=== PATIENT | male | born 1950 | race Caucasian/White ===

== ENCOUNTER → 2016-03-07 | Outpatient (CLI) | payer OTHER ==
[~2016-03-07] MED LIST: AGRYLIN0.5 MG PO; ALBUTEROL0.09 MG/A2 IH; AMBIEN5 MG PO; ASACOL400 MG PO; ASPI-COR81 M1 PO; ASPIRIN325 M2 PO; ATIVAN1 MG PO; AUGMENTIN 875 M1 TAB PO; CALCIUM1 CAP PO; CALCIUM1 TAB PO; CIPRO500 MG PO; CIPRODEX 0.3%-7.5 ML OT; CLARITIN10 MG PO; COMBIVENT1 ARO IH; DOXYCYCLINE MO100 MG PO; EFFEXOR XR37.5 M1 PO; EFFEXOR37.5 MG PO; FLEXERIL5 MG PO; FLOMAX0.4 MG PO; FOLIC ACID1 MG PO; HYDREA500 M1 PO; HYDREA500 MG PO; IMODIUM2 MG PO; IRON; LAMICTAL CD5 MG PO; LOMOTIL 0.025 M1 TAB PO; LOPERAMIDE2 MG; LORTAB 7.5/3251 TAB PO; MS CONTIN30 MG PO; MUCINEX600 MG PO; MULTIPLE VITAMI1 TAB PO; NASONEX0.05 MG/AC NAS; NATURE'S BLEND F1 MG PO; POTASSIUM20 MEQ PO; PREVACID30 M1 PO; PRILOSEC20 MG PO; ROBAXIN750 MG PO; SINGULAIR10 MG PO; STOMACH; ULTRAM50 MG PO; VIBRAMYCIN100 MG PO; VICO75300 PO; VICODIN 5/500 505 MG PO; XANAX0.5 MG PO; ZITHROMAX Z PA250 MG PO; ZOFRAN4 MG PO; ZOLPIDEM10 MG PO; ZYRTEC10 MG PO; [UNRECOGNIZED DRUG - REMARK]
[2016-03-07 18:59] LABS: HEMATOCRIT 35.8 % (42.0-52.0); HEMOGLOBIN 12.5 g/dl (14.0-18.0); MEAN CELL VOLUME 110.5 fl (80.0-94.0); MEAN CORPUSCULAR HGB 38.6 pg (27.0-31.0); MEAN CORPUSCULAR HGB CONC 34.9 g/dl (33.0-37.0); MEAN PLATELET VOLUME 8.7 fl (9.6-12.3); PLATELET COUNT AUTOMATED 274 10*3/uL (130-400); RED BLOOD COUNT 3.24 10*6/uL (4.50-5.90); RED CELL DISTRI WIDTH 14.5 % (0-14.5); WHITE BLOOD COUNT 8.9 10*3/uL (4.8-10.8)
[2016-03-07 19:21] LABS: ALBUMIN 3.8 gm/dl (3.1-4.5); ALKALINE PHOSPHATASE 45 U/L (45-117); BILIRUBIN, TOTAL 0.5 mg/dl (0.2-1.0); BUN 19 mg/dl (7-24); CARBON DIOXIDE 26 mmol/L (21-32); CHLORIDE 107 mmol/L (98-107); CHOLESTEROL 187 mg/dL (<200); EST GLOM FILT AFRICAN AMERICAN > 60 ml/min; FREE T4 0.93 ng/dl (0.76-1.46); GLUCOSE 111 mg/dL (65-99); HDL CHOLESTEROL 33 mg/dl (40-60); SGOT/AST 24 IU/L (3-35); SGPT/ALT 30 U/L (12-78); SODIUM 142 mmol/L (136-145); TOTAL PROTEIN 7.1 gm/dL (6.4-8.2); TRIGLYCERIDES 542 mg/dl (<150)
[2016-03-07 19:22] LABS: LYMPHOCYTE # 1.3 10*3/uL (1.3-4.4); MONOCYTE # 0.7 10*3/uL (0.1-1.0); NEUTROPHIL # 6.9 10*3/uL (2.3-7.9); NEUTROPHILS 77 % (47-73); TOTAL CELLS COUNTED 100 #CELLS
[2016-03-07 19:23] LABS: PLATELET SUFFICIENCY NORMAL (NORMAL); POLYCHROMASIA SLIGHT; TEAR DROP CELLS FEW
[2016-03-07 19:30] LABS: FOLIC ACID 17.59 ng/mL (>5.38); VITAMIN D, 25-HYDROXY 25.5 ng/mL (30-100)
== END | disposition home or self-care (01) ==
LOC: LAB 18:17
PROVIDERS: Internal Medicine Hematology & Oncology
DX: Z12.5 Encounter for screening for malignant neoplasm of prostate (principal); Z13.21 Encounter for screening for nutritional disorder; Z13.1 Encounter for screening for diabetes mellitus; Z13.220 Encounter for screening for lipoid disorders; C18.9 Malignant neoplasm of colon, unspecified; E55.9 Vitamin D deficiency, unspecified; K21.0 Gastro-esophageal reflux disease with esophagitis; K51.90 Ulcerative colitis, unspecified, without complications; R53.81 Other malaise

== ENCOUNTER 2016-05-21 19:39 | Emergency (ER) | payer OTHER ==
[~2016-05-21] VITALS: Ht 170.1 cm; Wt 83.9 kg
[2016-05-21 19:46] VITALS: BP 150/74
[2016-05-21] MEDS ORDERED: FLONASE ALLERG9.9 ML NS (21:24)
[2016-05-21] MEDS ORDERED: AUGMENTIN 875875 MG PO (21:24)
== END 2016-05-21 21:30 | disposition home or self-care (01) ==
LOC: ED 19:39
DX: J01.90 Acute sinusitis, unspecified (principal); H93.8X1 Other specified disorders of right ear; F17.200 Nicotine dependence, unspecified, uncomplicated; Z88.8 Allergy status to other drugs, medicaments and biological substances; Z79.899 Other long term (current) drug therapy

== ENCOUNTER → 2016-06-05 | Outpatient (CLI) | payer OTHER ==
[~2016-06-05] MED LIST changes: +AUGMENTIN 875875 MG PO; +FLONASE ALLERG9.9 ML NS
[2016-06-05 12:14] LABS: BASO % 0.5 % (0.0-1.0); EOS # 0.1 10*3/uL (0.0-0.4); EOS % 2.5 % (1.0-4.0); HEMATOCRIT 38.8 % (42.0-52.0); HEMOGLOBIN 13.5 g/dl (14.0-18.0); LYMPH # 1.2 10*3/uL (1.3-4.4); LYMPH % 22.3 % (27.0-41.0); MEAN CELL VOLUME 107.8 fl (80.0-94.0); MEAN CORPUSCULAR HGB 37.5 pg (27.0-31.0); MEAN CORPUSCULAR HGB CONC 34.8 g/dl (33.0-37.0); MEAN PLATELET VOLUME 8.9 fl (9.6-12.3); MONO # 0.7 10*3/uL (0.1-1.0); MONO % 12.6 % (3.0-9.0); NEUT # 3.4 10*3/uL (2.3-7.9); NEUT % 61.9 % (47.0-73.0); PLATELET COUNT AUTOMATED 361 10*3/uL (130-400); RED CELL DISTRI WIDTH 14.7 % (0-14.5); WHITE BLOOD COUNT 5.6 10*3/uL (4.8-10.8)
== END | disposition home or self-care (01) ==
LOC: LAB 10:55
PROVIDERS: Internal Medicine Hematology & Oncology
DX: D47.1 Chronic myeloproliferative disease (principal)

== ENCOUNTER 2016-08-22 11:29 | Emergency (ER) | payer OTHER ==
[~2016-08-22] VITALS: Ht 170.1 cm; Wt 83.9 kg
[2016-08-22 11:33] VITALS: BP 143/79
[2016-08-22 12:07] LABS: HEMATOCRIT 39.1 % (42.0-52.0); MEAN CELL VOLUME 110.8 fl (80.0-94.0); MEAN CORPUSCULAR HGB 39.7 pg (27.0-31.0); MEAN CORPUSCULAR HGB CONC 35.8 g/dl (33.0-37.0); MEAN PLATELET VOLUME 8.6 fl (9.6-12.3); PLATELET COUNT AUTOMATED 345 10*3/uL (130-400); RED BLOOD COUNT 3.53 10*6/uL (4.50-5.90); RED CELL DISTRI WIDTH 15.4 % (0-14.5); WHITE BLOOD COUNT 5.5 10*3/uL (4.8-10.8)
[2016-08-22 12:23] LABS: ALBUMIN 3.7 gm/dl (3.1-4.5); ALKALINE PHOSPHATASE 59 U/L (45-117); BILIRUBIN, TOTAL 0.4 mg/dl (0.2-1.0); BUN 24 mg/dl (7-24); CARBON DIOXIDE 20 mmol/L (21-32); CHLORIDE 109 mmol/L (98-107); EST GLOM FILT AFRICAN AMERICAN > 60 ml/min; GLUCOSE 118 mg/dL (65-99); POTASSIUM 4.1 mmol/L (3.5-5.1); SGOT/AST 18 IU/L (3-35); SGPT/ALT 31 U/L (12-78); SODIUM 140 mmol/L (136-145); TOTAL PROTEIN 7.9 gm/dL (6.4-8.2)
[2016-08-22 12:26] LABS: TROPONIN I < 0.015 ng/ml (<0.045)
[2016-08-22 12:29] LABS: LYMPHOCYTE # 1.2 10*3/uL (1.3-4.4); MONOCYTE # 0.4 10*3/uL (0.1-1.0); NEUTROPHIL # 3.9 10*3/uL (2.3-7.9); NEUTROPHILS 70 % (47-73); PLATELET SUFFICIENCY NORMAL (NORMAL); TOTAL CELLS COUNTED 100 #CELLS
[2016-08-22 12:30] LABS: POLYCHROMASIA SLIGHT; TEAR DROP CELLS FEW
[2016-08-22] MEDS ORDERED: ZITHROMAX250 MG PO (13:39)
[2016-08-22] MEDS ORDERED: VENTOLIN H0.09 MG/AC INH (13:43)
== END 2016-08-22 14:02 | disposition home or self-care (01) ==
LOC: ED 11:29
PROVIDERS: Emergency Medicine
DX: J18.1 Lobar pneumonia, unspecified organism (principal); Z90.49 Acquired absence of other specified parts of digestive tract; Z88.8 Allergy status to other drugs, medicaments and biological substances; Z79.899 Other long term (current) drug therapy

== ENCOUNTER → 2016-09-19 | Outpatient (CLI) | payer OTHER ==
[~2016-09-19] MED LIST changes: +VENTOLIN H0.09 MG/AC INH; +ZITHROMAX250 MG PO
[2016-09-19 12:39] LABS: HEMATOCRIT 38.5 % (42.0-52.0); HEMOGLOBIN 13.4 g/dl (14.0-18.0); MEAN CELL VOLUME 114.9 fl (80.0-94.0); MEAN CORPUSCULAR HGB CONC 34.8 g/dl (33.0-37.0); MEAN PLATELET VOLUME 9.6 fl (9.6-12.3); PLATELET COUNT AUTOMATED 384 10*3/uL (130-400); RED BLOOD COUNT 3.35 10*6/uL (4.50-5.90); RED CELL DISTRI WIDTH 15.8 % (0-14.5)
[2016-09-19 13:05] LABS: EOSINOPHIL # 0.1 10*3/uL (0-0.4); EOSINOPHILS 2 % (1-4); LYMPHOCYTE # 1.4 10*3/uL (1.3-4.4); MONOCYTE # 0.3 10*3/uL (0.1-1.0); MYELOCYTES 1 % (0-0); NEUTROPHIL # 3.2 10*3/uL (2.3-7.9); NEUTROPHILS 64 % (47-73); PLATELET SUFFICIENCY NORMAL (NORMAL); POLYCHROMASIA SLIGHT; ROULEAUX SLIGHT; TOTAL CELLS COUNTED 100 #CELLS; TOXIC GRANULATION MODERATE
== END | disposition home or self-care (01) ==
LOC: LAB 11:44
PROVIDERS: Internal Medicine Hematology & Oncology
DX: D47.1 Chronic myeloproliferative disease (principal); R79.89 Other specified abnormal findings of blood chemistry

== ENCOUNTER → 2016-12-13 | Outpatient (CLI) | payer OTHER ==
[2016-12-13 20:33] LABS: HEMATOCRIT 38.6 % (42.0-52.0); HEMOGLOBIN 13.5 g/dl (14.0-18.0); MEAN CELL VOLUME 110.6 fl (80.0-94.0); MEAN CORPUSCULAR HGB 38.7 pg (27.0-31.0); MEAN PLATELET VOLUME 9.3 fl (9.6-12.3); PLATELET COUNT AUTOMATED 425 10*3/uL (130-400); RED BLOOD COUNT 3.49 10*6/uL (4.50-5.90); RED CELL DISTRI WIDTH 13.6 % (0-14.5); WHITE BLOOD COUNT 5.9 10*3/uL (4.8-10.8)
[2016-12-13 21:04] LABS: TOTAL CELLS COUNTED 100 #CELLS
[2016-12-13 21:07] LABS: PLATELET SUFFICIENCY HIGH (NORMAL); POLYCHROMASIA SLIGHT
== END | disposition home or self-care (01) ==
LOC: LAB 19:15
PROVIDERS: Internal Medicine Hematology & Oncology
DX: D47.1 Chronic myeloproliferative disease (principal)

== ENCOUNTER 2016-12-21 09:55 | Emergency (ER) | payer OTHER ==
[~2016-12-21] VITALS: Ht 170.1 cm; Wt 81.6 kg
[2016-12-21 10:38] LABS: BASO % 0.3 % (0.0-1.0); EOS % 0.3 % (1.0-4.0); HEMATOCRIT 47.5 % (42.0-52.0); HEMOGLOBIN 16.8 g/dl (14.0-18.0); LYMPH # 1.1 10*3/uL (1.3-4.4); LYMPH % 12.4 % (27.0-41.0); MEAN CELL VOLUME 106.7 fl (80.0-94.0); MEAN CORPUSCULAR HGB 37.8 pg (27.0-31.0); MEAN CORPUSCULAR HGB CONC 35.4 g/dl (33.0-37.0); MONO # 1.2 10*3/uL (0.1-1.0); MONO % 12.6 % (3.0-9.0); NEUT # 6.7 10*3/uL (2.3-7.9); NEUT % 74.1 % (47.0-73.0); PLATELET COUNT AUTOMATED 605 10*3/uL (130-400); RED BLOOD COUNT 4.45 10*6/uL (4.50-5.90); RED CELL DISTRI WIDTH 13.2 % (0-14.5); WHITE BLOOD COUNT 9.1 10*3/uL (4.8-10.8)
[2016-12-21 10:51] LABS: ALBUMIN 4.6 gm/dl (3.1-4.5); ALKALINE PHOSPHATASE 111 U/L (45-117); BUN 25 mg/dl (7-24); CHLORIDE 99 mmol/L (98-107); CREATININE 1.41 mg/dL (0.70-1.30); POTASSIUM 4.1 mmol/L (3.5-5.1); SGOT/AST 22 IU/L (3-35); SGPT/ALT 27 U/L (12-78); SODIUM 135 mmol/L (136-145); TOTAL PROTEIN 9.1 gm/dL (6.4-8.2)
[2016-12-21 14:12] VITALS: BP 120/77
== END 2016-12-21 14:46 | disposition short-term general hospital (02) ==
LOC: ED 09:55
PROVIDERS: Nurse Practitioner Family
DX: K56.609 Unspecified intestinal obstruction, unspecified as to partial versus complete obstruction (principal); M25.552 Pain in left hip; N17.9 Acute kidney failure, unspecified; D69.6 Thrombocytopenia, unspecified; R03.0 Elevated blood-pressure reading, without diagnosis of hypertension; Z98.890 Other specified postprocedural states; Z90.49 Acquired absence of other specified parts of digestive tract; Z88.6 Allergy status to analgesic agent; Z79.899 Other long term (current) drug therapy; Z85.038 Personal history of other malignant neoplasm of large intestine; Z93.2 Ileostomy status; W19.XXXA Unspecified fall, initial encounter; Y93.89 Activity, other specified; Y92.89 Other specified places as the place of occurrence of the external cause; Y99.9 Unspecified external cause status

== ENCOUNTER 2017-04-30 05:35 | Inpatient (IN) | payer OTHER ==
[~2017-04-30] VITALS: Ht 170 cm; Wt 86.0 kg
[2017-04-30] VITALS (7 sets, daily range): BP systolic 115–155; BP diastolic 57–81
--- NOTE | ~2017-04-30 | WRIGHTHP ---
[place], [place] PATIENT HISTORY AND PHYSICAL EXAM [id number] #: [id number] ROOM: 518 DOCTOR: RAEGAN WEAVER MD BIRTHDATE: [birth year] DOS: 04/30/2017 HISTORY OF PRESENT ILLNESS: This patient is 66 years old, patient of Dr. Rosales, comes in to the Emergency Room with complaints of nausea and emesis. The patient also had some minimal abdominal discomfort. States that he had one mile walk on Saturday, was very tired. On Saturday, he decided to eat cube steak and broccoli, did not agree with him. Saturday morning, he woke up with abdominal discomfort and nausea. He presented to the Emergency Room where he was evaluated and was found to have partial small-bowel obstruction, was admitted. The patient has felt fine during the night, did not have any complaints this morning. Does not have any complaints of nausea or emesis. Does not have any abdominal pain. PAST MEDICAL HISTORY: Significant for: 1. History of ileostomy. 2. 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 3. Last hospitalization 10/2014 with cellulitis of the left arm. 4. History of ulcerative colitis. 5. Chronic pain syndrome. MEDICATIONS: He is currently on ProAir HFA 2 puffs q. 4, Flonase 1 spray to each nostril daily, Xanax 0.5 b.i.d., calcium 500 daily, cetirizine 10 at bedtime, vitamin D 5000 units daily, iron 325 daily, folic acid 1 mg daily, hydrocodone 7.5 q. 6 p.r.n., hydroxyurea 2 tablets daily, omeprazole 20 daily, venlafaxine 37.5 mg daily. SOCIAL HISTORY: History of smoking, history of usage of marijuana. PHYSICAL EXAMINATION: GENERAL: He is awake and alert and oriented, in no distress. VITAL SIGNS: Pressure is 119/53, pulse of 68, respirations 18, temperature 98.9. LUNGS: Clear. HEART: Regular. ABDOMEN: Obese, soft, bowel sounds present. EXTREMITIES: Without any edema. ASSESSMENT AND PLAN: 1. The patient admitted with partial small-bowel obstruction and small bowel ileus, does not have any more complaints this morning and bowel sounds are active. Acute abdominal series was ordered and it is pending but the patient can be started on diet. If he tolerates it, he can be discharged to home; probably has adhesions which is causing his partial small-bowel obstruction. 2. Elevated white cell count, possibly from the stress effect. The patient does not have any fever. Lactic acid is normal. 3. History of CA colon, status post colectomy. CT scan of the abdomen and pelvis does not show any new abnormalities or recurrence of malignancy. [place], [place] PATIENT HISTORY AND PHYSICAL EXAM NAME: [facility]STRO [place] [facility] [id number] UNIT #: [id number] ROOM: 8 DOCTOR: RAEGAN WEAVER MD BIRTHDATE: [birth year] RAEGAN WEAVER MD CM:HISPHYS:PATIENT HISTORY AND PHYSICAL EXAMINATION [id number] RAEGAN WEAVER MD 05/01/17 1344 interface
[~2017-04-30 05:35] MED LIST changes: -LORTAB 7.5/3251 TAB PO; +NORCO 7.5-3251 EACH PO; +PRILOSEC20 M1 PO; -PRILOSEC20 MG PO
[2017-04-30 06:21] LABS: BASO # 0.1 10*3/uL (0.0-0.1); BASO % 0.5 % (0.0-1.0); EOS # 0.1 10*3/uL (0.0-0.4); EOS % 1.2 % (1.0-4.0); HEMATOCRIT 43.9 % (42.0-52.0); HEMOGLOBIN 15.3 g/dl (14.0-18.0); LYMPH % 8.5 % (27.0-41.0); MEAN CELL VOLUME 97.8 fl (80.0-94.0); MEAN CORPUSCULAR HGB 34.1 pg (27.0-31.0); MEAN CORPUSCULAR HGB CONC 34.9 g/dl (33.0-37.0); MEAN PLATELET VOLUME 9.3 fl (9.6-12.3); MONO # 1.3 10*3/uL (0.1-1.0); MONO % 11.1 % (3.0-9.0); NEUT # 9.4 10*3/uL (2.3-7.9); NEUT % 78.3 % (47.0-73.0); PLATELET COUNT AUTOMATED 409 10*3/uL (130-400); RED BLOOD COUNT 4.49 10*6/uL (4.50-5.90); RED CELL DISTRI WIDTH 14.1 % (0-14.5)
[2017-04-30 06:35] LABS: ACT PARTIAL THROMBO TIME 25.5 SECONDS (20.8-31.5)
[2017-04-30 06:40] LABS: ALBUMIN 3.9 gm/dl (3.1-4.5); ALKALINE PHOSPHATASE 59 U/L (45-117); BUN 14 mg/dl (7-24); CHLORIDE 102 mmol/L (98-107); CREATININE 0.96 mg/dL (0.70-1.30); LIPASE 125 U/L (73-393); POTASSIUM 4.1 mmol/L (3.5-5.1); SGOT/AST 33 IU/L (3-35); SGPT/ALT 38 U/L (12-78); SODIUM 135 mmol/L (136-145)
[2017-04-30 06:41] LABS: TROPONIN I < 0.015 ng/ml (<0.045)
[2017-04-30] MEDS ORDERED: PROAIR HFA8.5 GM INH (11:47)
[2017-04-30] MEDS ORDERED: ZYRTEC10 MG PO (11:50)
[2017-04-30] MEDS ORDERED: FLONASE ALLERG9.9 ML NAS (11:51)
[2017-04-30] MEDS ORDERED: IRON325 M1 PO (11:52)
[2017-04-30] MEDS ORDERED: EFFEXOR XR37.5 MG PO (11:54)
[2017-04-30] MEDS ORDERED: VITAMIN D5000 UNI1 PO (11:55)
[2017-04-30] MEDS ORDERED: OYSTER SHELL C1 EAC3 PO (11:56)
[2017-04-30 14:47] LABS: BILIRUBIN NEGATIVE (NEGATIVE); BLOOD NEGATIVE (NEGATIVE); CLARITY CLEAR (CLEAR); COLOR YELLOW (YELLOW); GLUCOSE NEGATIVE (NEGATIVE); KETONE NEGATIVE (NEGATIVE); LEUKO ESTERASE NEGATIVE (NEGATIVE); NITRITE NEGATIVE (NEGATIVE); UROBILINOGEN 0.2 E.U./dl (0.2-1.0)
[2017-04-30 15:05] LABS: BACTERIA TRACE; MUCOUS TRACE
[2017-04-30 15:06] LABS: EPITHELIAL CELLS 0-2; RBC 0-2 rbc/hpf (0-2)
[2017-05-01] VITALS: BP 119/53
[2017-05-01 08:00] VITALS: BP 150/80
== END 2017-05-01 10:40 | disposition home or self-care (01) | DRG 394 ==
LOC: ED 05:35 → EDHOLD 10:17 → 5E 10:17
PROVIDERS: Student in an Organized Health Care Education/Training Program
DX: K43.0 Incisional hernia with obstruction, without gangrene (principal); K56.7 Ileus, unspecified; G89.4 Chronic pain syndrome; Z93.3 Colostomy status; Z85.038 Personal history of other malignant neoplasm of large intestine; Z87.81 Personal history of (healed) traumatic fracture; Z88.8 Allergy status to other drugs, medicaments and biological substances; Z93.2 Ileostomy status; Z87.891 Personal history of nicotine dependence; Z79.899 Other long term (current) drug therapy; Z87.01 Personal history of pneumonia (recurrent); Z87.440 Personal history of urinary (tract) infections

== ENCOUNTER 2017-07-27 02:30 | Emergency (ER) | payer OTHER ==
[~2017-07-27] VITALS: Ht 170.1 cm; Wt 81.6 kg
[~2017-07-27 02:30] MED LIST changes: +EFFEXOR XR37.5 MG PO; +FLONASE ALLERG9.9 ML NAS; +IRON325 M1 PO; +OYSTER SHELL C1 EAC3 PO; +PROAIR HFA8.5 GM INH; +VITAMIN D5000 UNI1 PO
[2017-07-27 02:33] VITALS: BP 148/82
[2017-07-27 03:14] LABS: BASO # 0.1 10*3/uL (0.0-0.1); BASO % 0.7 % (0.0-1.0); EOS # 0.2 10*3/uL (0.0-0.4); EOS % 1.8 % (1.0-4.0); HEMATOCRIT 43.6 % (42.0-52.0); HEMOGLOBIN 15.4 g/dl (14.0-18.0); LYMPH # 1.1 10*3/uL (1.3-4.4); LYMPH % 11.7 % (27.0-41.0); MEAN CELL VOLUME 98.9 fl (80.0-94.0); MEAN CORPUSCULAR HGB 34.9 pg (27.0-31.0); MEAN CORPUSCULAR HGB CONC 35.3 g/dl (33.0-37.0); MEAN PLATELET VOLUME 8.9 fl (9.6-12.3); MONO % 10.2 % (3.0-9.0); NEUT # 7.1 10*3/uL (2.3-7.9); NEUT % 75.3 % (47.0-73.0); PLATELET COUNT AUTOMATED 431 10*3/uL (130-400); RED BLOOD COUNT 4.41 10*6/uL (4.50-5.90); RED CELL DISTRI WIDTH 15.5 % (0-14.5); WHITE BLOOD COUNT 9.5 10*3/uL (4.8-10.8)
[2017-07-27 03:23] LABS: ACT PARTIAL THROMBO TIME 26.3 SECONDS (20.8-31.5)
[2017-07-27 03:31] LABS: ALBUMIN 4.2 gm/dl (3.1-4.5); ALKALINE PHOSPHATASE 51 U/L (45-117); BUN 16 mg/dl (7-24); CHLORIDE 105 mmol/L (98-107); LIPASE 142 U/L (73-393); SGOT/AST 34 IU/L (3-35); SGPT/ALT 39 U/L (12-78); SODIUM 137 mmol/L (136-145); TOTAL PROTEIN 7.9 gm/dL (6.4-8.2)
[2017-07-27 03:35] LABS: TROPONIN I < 0.015 ng/ml (<0.045)
== END 2017-07-27 07:11 | disposition left against medical advice (07) ==
LOC: ED 02:30 → EDHOLD 06:10 → ED 06:10
PROVIDERS: Emergency Medicine Emergency Medical Services
DX: K56.690 Other partial intestinal obstruction (principal); Z88.8 Allergy status to other drugs, medicaments and biological substances; Z79.899 Other long term (current) drug therapy; Z90.49 Acquired absence of other specified parts of digestive tract

== ENCOUNTER → 2017-08-26 | Outpatient (CLI) | payer OTHER ==
[2017-08-26 18:05] LABS: BASO # 0.1 10*3/uL (0.0-0.1); BASO % 0.6 % (0.0-1.0); EOS # 0.2 10*3/uL (0.0-0.4); EOS % 1.4 % (1.0-4.0); HEMATOCRIT 42.5 % (42.0-52.0); HEMOGLOBIN 14.8 g/dl (14.0-18.0); LYMPH # 1.2 10*3/uL (1.3-4.4); LYMPH % 11.5 % (27.0-41.0); MEAN CELL VOLUME 99.3 fl (80.0-94.0); MEAN CORPUSCULAR HGB 34.6 pg (27.0-31.0); MEAN CORPUSCULAR HGB CONC 34.8 g/dl (33.0-37.0); MEAN PLATELET VOLUME 9.3 fl (9.6-12.3); MONO # 0.9 10*3/uL (0.1-1.0); MONO % 8.1 % (3.0-9.0); NEUT # 8.2 10*3/uL (2.3-7.9); NEUT % 77.9 % (47.0-73.0); PLATELET COUNT AUTOMATED 486 10*3/uL (130-400); RED BLOOD COUNT 4.28 10*6/uL (4.50-5.90); RED CELL DISTRI WIDTH 15.3 % (0-14.5); WHITE BLOOD COUNT 10.5 10*3/uL (4.8-10.8)
[2017-08-26 18:38] LABS: ALBUMIN 3.8 gm/dl (3.1-4.5); ALKALINE PHOSPHATASE 48 U/L (45-117); BUN 13 mg/dl (7-24); CEA 1.3 ng/mL; CHLORIDE 113 mmol/L (98-107); CREATININE 1.12 mg/dL (0.70-1.30); SGOT/AST 20 IU/L (3-35); SGPT/ALT 24 U/L (12-78); SODIUM 143 mmol/L (136-145); TOTAL PROTEIN 7.6 gm/dL (6.4-8.2)
== END | disposition home or self-care (01) ==
LOC: LAB 17:26
PROVIDERS: Nurse Practitioner Family
DX: C18.9 Malignant neoplasm of colon, unspecified (principal)

== ENCOUNTER → 2017-09-24 | Outpatient (CLI) | payer OTHER ==
[2017-09-24 11:10] LABS: BASO # 0.1 10*3/uL (0.0-0.1); BASO % 0.7 % (0.0-1.0); EOS # 0.2 10*3/uL (0.0-0.4); HEMATOCRIT 38.5 % (42.0-52.0); HEMOGLOBIN 13.4 g/dl (14.0-18.0); LYMPH # 0.9 10*3/uL (1.3-4.4); LYMPH % 11.5 % (27.0-41.0); MEAN CELL VOLUME 99.2 fl (80.0-94.0); MEAN CORPUSCULAR HGB 34.5 pg (27.0-31.0); MEAN CORPUSCULAR HGB CONC 34.8 g/dl (33.0-37.0); MEAN PLATELET VOLUME 9.2 fl (9.6-12.3); MONO # 0.7 10*3/uL (0.1-1.0); MONO % 8.9 % (3.0-9.0); NEUT # 5.9 10*3/uL (2.3-7.9); NEUT % 76.4 % (47.0-73.0); PLATELET COUNT AUTOMATED 418 10*3/uL (130-400); RED BLOOD COUNT 3.88 10*6/uL (4.50-5.90); RED CELL DISTRI WIDTH 14.6 % (0-14.5); WHITE BLOOD COUNT 7.7 10*3/uL (4.8-10.8)
[2017-09-24 11:27] LABS: ALBUMIN 4.2 gm/dl (3.1-4.5); ALKALINE PHOSPHATASE 46 U/L (45-117); BUN 17 mg/dl (7-24); CHLORIDE 111 mmol/L (98-107); CREATININE 1.02 mg/dL (0.70-1.30); SGOT/AST 14 IU/L (3-35); SGPT/ALT 21 U/L (12-78); SODIUM 139 mmol/L (136-145); TOTAL PROTEIN 7.1 gm/dL (6.4-8.2)
[2017-09-24 11:30] LABS: CEA 1.1 ng/mL
== END | disposition home or self-care (01) ==
LOC: LAB 10:38 → EDSTATUS 10:38
PROVIDERS: Nurse Practitioner Family
DX: C18.9 Malignant neoplasm of colon, unspecified (principal)

== ENCOUNTER 2018-03-12 15:52 | Inpatient (IN) | payer OTHER ==
--- NOTE | ~2018-03-12 | WRIGHTHP ---
[place], [place] PATIENT HISTORY AND PHYSICAL EXAM NAME: PALMIRA CASTRO [facility] #: [id number] UNIT #: [id number] ROOM: [facility] DOCTOR: ISABEL DOCKERY MD BIRTHDATE: [birth year] DOS: 03/12/2018 HISTORY OF PRESENT ILLNESS: The patient is a 67-year-old gentleman with a past medical history of: ]. Long-standing ulcerative colitis, status post colectomy and colostomy. The patient is still waiting for reversal. 2. History of cancer of the colon related to ulcerative colitis, status post colectomy. 3. The patient had left below knee amputation. 4. Left hip prosthesis and left femur prosthesis. 5. Chronic pain syndrome. 6. GERD and esophagitis. 7. Major depression, recurrent, mild. 8. Chronic lymphocytic leukemia, treated with hydroxyurea. 9. Generalized anxiety disorder. The patient presented to the Emergency Department at [facility] after he fell down at home and was having abdominal pains at the site of his hernia. He was also having cramps in his legs, which he says made him fall. In the Emergency Department, his potassium levels were found to be low and he was found to be dehydrated. The patient was admitted for rehydration. There were no obvious fractures on x-rays performed in the Emergency Department. CT of the abdomen and pelvis and x-ray KUB were also performed. No chest pains. No increasing shortness of breath. No other GI or urinary symptoms. ALLERGIES: Known allergies to PREDNISONE, which causes psychological issues. FAMILY HISTORY: Noncontributory. HOME MEDICATIONS: The patient takes Vicodin, cetirizine, hydroxyurea, venlafaxine, omeprazole, Flonase, Xanax at home. PHYSICAL EXAMINATION: GENERAL: Alert, oriented x 3, in no visible distress. HEENT AND NECK: Extraocular movements are intact. Sclerae are anicteric. Oral mucosa is moist and clean. No obvious facial weakness. Neck is supple without any lymphadenopathy. No thyromegaly. No JVD. No carotid arterial bruits. LUNGS: Clear to auscultation. No wheezing. No rhonchi. CARDIOVASCULAR SYSTEM: Heart rate is regular in rate and rhythm. S1 and S2 normally audible. No significant murmur or any other abnormal cardiac sounds. ABDOMEN: Colostomy and ventral abdominal hernia. EXTREMITIES: The patient has left below knee amputation. CENTRAL NERVOUS SYSTEM: Alert and oriented x 3. Cranial nerves II-XII are intact. Speech is normal. The patient is able to move all extremities. Normal muscle strength. Deep tendon reflexes are equal on both sides. Plantars were downgoing. LABORATORY DATA: CT scan results as mentioned above. BUN and creatinine 26 and 1.8. Normal CBC. [place], [place] PATIENT HISTORY AND PHYSICAL EXAM [id number] #: [id number] ROOM: [facility] DOCTOR: ISABEL DOCKERY MD BIRTHDATE: [birth year] IMPRESSION: 1. The patient fell at home with muscle cramps in his right calf. No serious injuries. He appears dehydrated. 2. Dehydration and hypovolemia. The patient is being hydrated with normal saline and to be ambulated in the hallways. The patient was hypotensive at admission. 3. Hypotension from dehydration and hypovolemia, improved with hydration with normal saline. 4. Complains of itching in the skin, with history of POLLEN allergies. I started him on cetirizine again. 5. Generalized anxiety disorder, treated with Xanax as needed. 6. Major depression, recurrent, mild, treated and controlled with Effexor. 7. Chronic lymphocytic leukemia. The patient remains on hydroxyurea. 8. Left below knee amputation, femur and hip prosthesis with chronic pains. The patient is more functional with treatment with Vicodin, which is continued. 9. Gastroesophageal reflux disease and esophagitis, asymptomatic with Prevacid, which is continued. 10. Generalized anxiety disorder. The patient continued on Xanax as needed. ISABEL DOCKERY MD CM:HISPHYS:PATIENT HISTORY AND PHYSICAL EXAMINATION 18 17 ISABEL DOCKERY MD 03/13/181818 interface
--- NOTE | ~2018-03-12 | DS ---
[place], [place] DISCHARGE SUMMARY NAME: PALMIRA CASTRO UNIT #: [id number] ROOM: 515 DOCTOR: ISABEL DOCKERY MD BIRTHDATE: [birth year] DOS: 03/14/2018 DISCHARGE DIAGNOSES: 1. Fall at home with fractures of the right 7th and 8th ribs with significant pains. 2. Multiple ventral abdominal hernias. 3. History of colon cancer, colon resection and colostomy. 4. History of ulcerative colitis. 5. Dehydration and hypovolemia. 6. Generalized anxiety disorder. 7. Major depression, recurrent, mild. 8. Chronic lymphocytic leukemia. 9. Left below knee amputation and femur prosthesis with chronic pains. 10. Gastroesophageal reflux disease and esophagitis. HOSPITAL COURSE: 1. The patient presented to [facility] after a fall resulting in abdominal pains and right-sided chest pains, where he was found to have 7th and 8th rib fractures. The patient was found to be dehydrated and hypovolemic, so he was admitted and hydrated with normal saline. CT scan of the abdomen and pelvis, and x-rays of the ribs and KUB were performed. The patient is feeling much better and ready to be discharged to home. 2. Hypotension and hypovolemia from dehydration, improved with hydration with normal saline. 3. Generalized anxiety disorder, treated with Xanax as needed. 4. Major depression, recurrent, treated with Effexor. 5. Chronic lymphocytic leukemia. LABORATORY DATA: Normal serum electrolytes. No leukocytosis. Hemoglobin was 13.2, BUN and creatinine 26 and 1.8 at admission and improved to normal with hydration. Vasomotor type acute renal failure. DISCHARGE MANAGEMENT: Cetirizine 10 mg a day, hydroxyurea 1000 mg daily, venlafaxine 37.5 mg a day, omeprazole 20 mg a day, Ventolin inhaler p.r.n., Nasonex nasal spray as directed, Vicodin every 6 hours p.r.n., Xanax 0.5 mg b.i.d. p.r.n. Follow up at the office on Saturday. [place], [place] DISCHARGE SUMMARY NAME: PALMIRA CASTRO UNIT #: [id number] ROOM: 515 DOCTOR: ISABEL DOCKERY MD BIRTHDATE: [birth year] ISABEL DOCKERY MD CM:YOEL [id number] ISABEL DOCKERY MD 04/03/18 0753 interface
[2018-03-12 15:52] VITALS: BP 94/50
[~2018-03-12 15:52] MED LIST changes: +VITAMIN D31000 UNI1 PO; -VITAMIN D5000 UNI1 PO
[2018-03-12 17:03] LABS: HEMATOCRIT 46.9 % (42.0-52.0); HEMOGLOBIN 16.6 g/dl (14.0-18.0); MEAN CELL VOLUME 102.4 fl (80.0-94.0); MEAN CORPUSCULAR HGB 36.2 pg (27.0-31.0); MEAN CORPUSCULAR HGB CONC 35.4 g/dl (33.0-37.0); MEAN PLATELET VOLUME 9.2 fl (9.6-12.3); PLATELET COUNT AUTOMATED 504 10*3/uL (130-400); RED BLOOD COUNT 4.58 10*6/uL (4.50-5.90); RED CELL DISTRI WIDTH 15.8 % (0-14.5); WHITE BLOOD COUNT 10.7 10*3/uL (4.8-10.8)
[2018-03-12 17:17] LABS: ALBUMIN 4.3 gm/dl (3.1-4.5); CREATININE 1.78 mg/dL (0.70-1.30); POTASSIUM 3.6 mmol/L (3.5-5.1); TOTAL PROTEIN 8.3 gm/dL (6.4-8.2)
[2018-03-12 17:22] LABS: BASOPHILS 1 % (0-1); PLATELET SUFFICIENCY HIGH (NORMAL); TOTAL CELLS COUNTED 100 #CELLS
--- NOTE | 2018-03-12 18:46 | NUR ---
Contacted [facility] for patients updated med list. Awaiting fax.
[2018-03-12 18:50] VITALS: BP 110/80
--- NOTE | 2018-03-12 18:50 | NUR ---
A 67, admitted to 5E, under the services of Dr. NAHED WALLS,ISABEL Franco with a diagnosis of Dehydration. Chief complaint is Abdominal Pain. Patient arrived via stretcher from ER. Monitor applied. Initial assessment completed. Vital signs taken and recorded. DR. NAHED WALLS,ISABEL Franco notified of admission to the unit. Orders received. See assessment for past medical history, medications and allergies. Patient and/or family oriented to unit. [address] visitation policy reviewed. Clothing/patient valuable form completed. ALMITA FELIPE
[2018-03-12] MEDS ORDERED: XANAX0.5 MG PO (19:08)
[2018-03-12] MEDS ORDERED: PROAIR HFA8.5 GM INH (19:09)
--- NOTE | 2018-03-12 22:52 | NUR ---
CONSULT CALLED TO DOCTOR DIAMANTE ORDERD FOR PAIN MEDICATION AND KUB IN THE MORNING PATIENT HAS JUST STATED THAT PAIN WAS NOT WORKING I INFORMED DOCTOR DIAMANTE WHO GAVE DIFFERNET PAIN MEDS.
[2018-03-13] VITALS: BP 114/75
--- NOTE | 2018-03-13 | NUR ---
SLEEPING. RESPIRATIONS EASY. LUNGS DIMINISHED, CLEAR. PULSE OX 92% RA. IV FLUIDS INFUSING PER ORDER. CALL LIGHT WITHIN REACH
--- NOTE | 2018-03-13 05:48 | NUR ---
AWAKENS, C/O PAIN TO RIGHT KNEE AND SHOULDER. MEDICATED WITH DILAUDID IV PER PRN ORDER. COLOSTOMY LEAKING, PATIENT PROVIDED WITH ERQUESTED SUPPLIES TO CHANGE. CALL LIGHT WITHIN REACH
[2018-03-13 06:53] LABS: BASO % 0.4 % (0.0-1.0); EOS # 0.1 10*3/uL (0.0-0.4); EOS % 1.7 % (1.0-4.0); HEMATOCRIT 46.4 % (42.0-52.0); HEMOGLOBIN 15.8 g/dl (14.0-18.0); LYMPH # 1.5 10*3/uL (1.3-4.4); LYMPH % 19.5 % (27.0-41.0); MEAN CORPUSCULAR HGB 35.7 pg (27.0-31.0); MEAN CORPUSCULAR HGB CONC 34.1 g/dl (33.0-37.0); MEAN PLATELET VOLUME 9.3 fl (9.6-12.3); MONO # 1.1 10*3/uL (0.1-1.0); MONO % 14.7 % (3.0-9.0); NEUT # 4.8 10*3/uL (2.3-7.9); NEUT % 63.3 % (47.0-73.0); PLATELET COUNT AUTOMATED 493 10*3/uL (130-400); RED BLOOD COUNT 4.42 10*6/uL (4.50-5.90); RED CELL DISTRI WIDTH 15.6 % (0-14.5); WHITE BLOOD COUNT 7.6 10*3/uL (4.8-10.8)
--- NOTE | 2018-03-13 07:00 | NUR ---
EARLIER MEDS EFFECTIVE. CALL LIGHT IN REACH. NO FURTHER VOICED COMPLAINTS
[2018-03-13 07:23] LABS: ALBUMIN 3.9 gm/dl (3.1-4.5); CREATININE 1.83 mg/dL (0.70-1.30); POTASSIUM 3.6 mmol/L (3.5-5.1)
[2018-03-13 08:00] VITALS: BP 114/62
--- NOTE | 2018-03-13 08:00 | NUR ---
PT RESTING IN BED. NO DISTRESS NOTED. WILL MONITOR
--- NOTE | 2018-03-13 09:00 | NUR ---
Community Education Coordinator in to talk to patient. Patient states lives at home with his . There are 0 steps in the home. Physician: Dr. Damon Khan Pharmacy: [facility] Home health services: none Patient's level of ADLs: MINIMAL ASSIST Patient has working utilities: yes DME: crutches, nebulizer Follow-up physician's appointment after d/c: he prefers to make his own follow up appt after discharge Does patient want to access PORTAL?: no Discharge plan discussed with patient. He lives at home with his . He is independent in his ADLs and uses crutches for ambulation. Discussed home health care services and he denies any home needs. He is anxious to return home to start working again. 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 When medically stable he will be discharged to home. ZOHRA BARROS
--- NOTE | 2018-03-13 09:02 | NUR ---
Notified Dr. Khan for patient's request for food and Mucinex. New orders received for Mucinex.
--- NOTE | 2018-03-13 09:20 | NUR ---
PT REQUESTED AND GIVEN NORCO FOR C/O GEN " ALL OVER " PAIN PT RATES PAIN 09/27 WILL MONITOR
--- NOTE | 2018-03-13 10:30 | NUR ---
PT STATES THAT NORCO HELPED A LITTLE WILL MONITOR
--- NOTE | 2018-03-13 11:19 | NUR ---
SPOKE WITH DR MATHEWS OFFICE REAGRDING CONSULT
[2018-03-13 12:00] VITALS: BP 102/65
--- NOTE | 2018-03-13 12:02 | NUR ---
PT REQUESTED AND GIVEN DILAUDID FOR C/O GEN PAIN PT RATES PAIN 09/27 WILL MONITOR
--- NOTE | 2018-03-13 13:37 | NUR ---
DR QUINTANA HERE TO SEE PT
[2018-03-13 16:00] VITALS: BP 113/64
--- NOTE | 2018-03-13 17:58 | NUR ---
MEDICATED WITH PO NORCO ORDERED PER PT REQUEST FO C/O RIGHT GREAT TOE AND FOOT PAIN RATED 7 OUT OF 10.
[2018-03-13 20:00] VITALS: BP 131/58
--- NOTE | 2018-03-13 20:11 | NUR ---
PT C/O RIGHT LEG AND BACK PAIN. RATES IT 09/27. REQUESTS DILAUDID. MEDICATION GIVEN. WILL MONITOR FOR EFFECTIVENESS.
--- NOTE | 2018-03-13 20:18 | NUR ---
PT C/O S/S OF ANXIETY. XANAX GIVEN PER PRN ORDERS. WILL MONITOR FOR EFFECTIVENESS.
--- NOTE | 2018-03-13 22:30 | NUR ---
SPOKE TO DR BOBBY REGARDING PT KUB RESULTS. DIAMANTE STATES THAT HE WILL SEE PATIENT IN THE MORNING.
[2018-03-14] VITALS: BP 133/63
--- NOTE | 2018-03-14 03:53 | NUR ---
PT GIVEN DILAUDID AT THIS TIME FOR C/O RIGHT LEG PAIN. WILL MONITOR FOR EFFECTIVENESS. CALL LIGHT IN REACH.
--- NOTE | 2018-03-14 04:53 | NUR ---
DILAUDID EFFECTIVE PER PT.
[2018-03-14 06:54] LABS: BASO % 0.5 % (0.0-1.0); EOS # 0.1 10*3/uL (0.0-0.4); EOS % 2.4 % (1.0-4.0); LYMPH # 1.1 10*3/uL (1.3-4.4); LYMPH % 19.3 % (27.0-41.0); MEAN CELL VOLUME 104.4 fl (80.0-94.0); MEAN CORPUSCULAR HGB 36.2 pg (27.0-31.0); MEAN CORPUSCULAR HGB CONC 34.6 g/dl (33.0-37.0); MONO # 0.7 10*3/uL (0.1-1.0); MONO % 12.3 % (3.0-9.0); NEUT # 3.6 10*3/uL (2.3-7.9); NEUT % 65.1 % (47.0-73.0); PLATELET COUNT AUTOMATED 362 10*3/uL (130-400); RED BLOOD COUNT 3.65 10*6/uL (4.50-5.90); RED CELL DISTRI WIDTH 14.6 % (0-14.5); WHITE BLOOD COUNT 5.5 10*3/uL (4.8-10.8)
[2018-03-14 07:04] LABS: HEMATOCRIT 38.1 % (42.0-52.0); HEMOGLOBIN 13.2 g/dl (14.0-18.0)
[2018-03-14 07:12] LABS: ALBUMIN 3.3 gm/dl (3.1-4.5); ALKALINE PHOSPHATASE 49 U/L (45-117); BUN 19 mg/dl (7-24); CHLORIDE 106 mmol/L (98-107); POTASSIUM 3.7 mmol/L (3.5-5.1); SGOT/AST 21 IU/L (3-35); SGPT/ALT 24 U/L (12-78); SODIUM 140 mmol/L (136-145); TOTAL PROTEIN 6.9 gm/dL (6.4-8.2)
--- NOTE | 2018-03-14 07:54 | NUR ---
PT REQUESTED AND GIVEN XANAX FOR ANXIETY AND NORCO FOR GEN PAIN PT RATES PAIN 09/27 WILL MONITOR
[2018-03-14 08:00] VITALS: BP 120/60
--- NOTE | 2018-03-14 09:00 | NUR ---
Manager Transportation Planning in to see patient. He would like a pair of crutches to be able to get around in his room. Instructed there are no crutches on the floor to lend to him. Asked if he would like to borrow a wheelchair. He would like to use a wheelchair to get into the shower. Informed there are shower chairs in the shower but a wheelchair could be used to get him to the shower and he verbalized an understanding. He would like a script for a pair of crutches at home because when he fell his home crutches were damaged. Notified Dr. Khan. When medically stable he will be discharged to home.
--- NOTE | 2018-03-14 11:13 | NUR ---
PT REQUESTED AND GIVEN DILAUDID FOR C/O GEN PAIN PT RATES PAIN 09/27 WILL MONITOR
--- NOTE | 2018-03-14 15:15 | NUR ---
Patient hollered out of room. 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 Nurse and cargo vessel stewardess notified.
--- NOTE | 2018-03-14 15:30 | NUR ---
PT STATES HE WANTS TO LEAVE AMA BC OF HIS AND HIS BUSINESS PT ASKED HOW HE GOING TO GET HOME . PT STATES HE IS UNSURE AND WILL WAIT A LITTLE BIT LONGER FOR DR DOCKERY
--- NOTE | 2018-03-14 18:30 | NUR ---
DR DOCKERY HERE TO SEE PT
--- NOTE | 2018-03-14 18:43 | NUR ---
PT REQUESTED AND GIVEN DILAUDID FOR C/O GEN PAIN PT RATES PAIN 09/27 WILL MONITOR
== END 2018-03-14 19:30 | disposition home or self-care (01) | DRG 183 ==
LOC: ED 15:52 → EDHOLD 18:22 → 5E 18:22
PROVIDERS: Nurse Practitioner Family; ADMIT Internal Medicine
DX: S22.41XA Multiple fractures of ribs, right side, initial encounter for closed fracture (principal); N17.0 Acute kidney failure with tubular necrosis; F33.9 Major depressive disorder, recurrent, unspecified; C91.10 Chronic lymphocytic leukemia of B-cell type not having achieved remission; K56.609 Unspecified intestinal obstruction, unspecified as to partial versus complete obstruction; E86.0 Dehydration; Z93.3 Colostomy status; Z85.038 Personal history of other malignant neoplasm of large intestine; Z89.512 Acquired absence of left leg below knee; G89.4 Chronic pain syndrome; K43.9 Ventral hernia without obstruction or gangrene; K21.0 Gastro-esophageal reflux disease with esophagitis; N18.1 Chronic kidney disease, stage 1; F41.1 Generalized anxiety disorder; E86.1 Hypovolemia; I95.9 Hypotension, unspecified; W18.39XA Other fall on same level, initial encounter; Y93.89 Activity, other specified; Y92.89 Other specified places as the place of occurrence of the external cause; Y99.8 Other external cause status

== ENCOUNTER → 2018-11-17 | Outpatient (CLI) | payer OTHER ==
[~2018-11-17] MED LIST changes: +DICYCLOMINE HCL10 MG PO
[2018-11-17 18:29] LABS: EOS # 0.1 10*3/uL (0.0-0.4); EOS % 1.8 % (1.0-4.0); HEMATOCRIT 37.9 % (42.0-52.0); HEMOGLOBIN 13.4 g/dl (14.0-18.0); LYMPH # 0.8 10*3/uL (1.3-4.4); LYMPH % 20.5 % (27.0-41.0); MEAN CELL VOLUME 106.8 fl (80.0-94.0); MEAN CORPUSCULAR HGB 37.7 pg (27.0-31.0); MEAN CORPUSCULAR HGB CONC 35.4 g/dl (33.0-37.0); MEAN PLATELET VOLUME 9.3 fl (9.6-12.3); MONO # 0.5 10*3/uL (0.1-1.0); MONO % 13.5 % (3.0-9.0); NEUT # 2.5 10*3/uL (2.3-7.9); NEUT % 62.9 % (47.0-73.0); PLATELET COUNT AUTOMATED 460 10*3/uL (130-400); RED BLOOD COUNT 3.55 10*6/uL (4.50-5.90); RED CELL DISTRI WIDTH 15.8 % (0-14.5)
[2018-11-17 18:47] LABS: ALBUMIN 3.8 gm/dl (3.1-4.5); ALKALINE PHOSPHATASE 49 U/L (45-117); BUN 17 mg/dl (7-24); CHLORIDE 107 mmol/L (98-107); CHOLESTEROL 210 mg/dL (<200); CREATININE 1.05 mg/dL (0.70-1.30); FREE T4 0.77 ng/dl (0.76-1.46); HDL CHOLESTEROL 28 mg/dl (40-60); IRON 81 ug/dL (65-175); SGOT/AST 23 IU/L (3-35); SGPT/ALT 28 U/L (12-78); SODIUM 137 mmol/L (136-145); TOTAL PROTEIN 7.4 gm/dL (6.4-8.2); TRIGLYCERIDES 745 mg/dl (<150)
[2018-11-17 18:52] LABS: THYROID STIM HORMONE (HS) 0.917 uIU/ml (0.358-4.75)
[2018-11-17 18:53] LABS: FERRITIN 246.4 ng/mL (22.0-322.0); VITAMIN D, 25-HYDROXY 35.3 ng/mL (30-100)
== END | disposition home or self-care (01) ==
LOC: LAB 18:07
PROVIDERS: Internal Medicine
DX: Z13.220 Encounter for screening for lipoid disorders (principal); Z13.1 Encounter for screening for diabetes mellitus; I10 Essential (primary) hypertension; E78.2 Mixed hyperlipidemia; E55.9 Vitamin D deficiency, unspecified

== ENCOUNTER 2018-12-03 17:40 | Emergency (ER) | payer OTHER ==
[~2018-12-03] VITALS: Ht 172.7 cm; Wt 81.6 kg
[~2018-12-03 17:40] MED LIST changes: -DICYCLOMINE HCL10 MG PO
[2018-12-03 17:42] VITALS: BP 164/73
[2018-12-03 18:20] LABS: BASO % 0.7 % (0.0-1.0); EOS # 0.1 10*3/uL (0.0-0.4); EOS % 1.1 % (1.0-4.0); HEMATOCRIT 40.9 % (42.0-52.0); HEMOGLOBIN 14.5 g/dl (14.0-18.0); LYMPH # 1.2 10*3/uL (1.3-4.4); LYMPH % 21.9 % (27.0-41.0); MEAN CORPUSCULAR HGB 37.6 pg (27.0-31.0); MEAN CORPUSCULAR HGB CONC 35.5 g/dl (33.0-37.0); MEAN PLATELET VOLUME 9.3 fl (9.6-12.3); MONO # 0.9 10*3/uL (0.1-1.0); MONO % 15.5 % (3.0-9.0); NEUT # 3.4 10*3/uL (2.3-7.9); NEUT % 60.4 % (47.0-73.0); PLATELET COUNT AUTOMATED 290 10*3/uL (130-400); RED BLOOD COUNT 3.86 10*6/uL (4.50-5.90); RED CELL DISTRI WIDTH 15.4 % (0-14.5); WHITE BLOOD COUNT 5.6 10*3/uL (4.8-10.8)
[2018-12-03 18:35] LABS: ALKALINE PHOSPHATASE 49 U/L (45-117); BUN 17 mg/dl (7-24); CHLORIDE 103 mmol/L (98-107); CREATININE 1.27 mg/dL (0.70-1.30); POTASSIUM 3.8 mmol/L (3.5-5.1); SGOT/AST 22 IU/L (3-35); SGPT/ALT 32 U/L (12-78); SODIUM 136 mmol/L (136-145); TOTAL PROTEIN 7.8 gm/dL (6.4-8.2)
[2018-12-03] MEDS ORDERED: DICYCLOMINE HCL10 MG PO (19:06)
== END 2018-12-03 19:09 ==
LOC: ED 17:40
PROVIDERS: Emergency Medicine
DX: R10.9 Unspecified abdominal pain (principal); Z93.3 Colostomy status; Z90.49 Acquired absence of other specified parts of digestive tract; Z98.890 Other specified postprocedural states; Z85.038 Personal history of other malignant neoplasm of large intestine; Z79.899 Other long term (current) drug therapy; Z88.6 Allergy status to analgesic agent

== ENCOUNTER 2019-04-21 03:16 | Emergency (ER) | payer OTHER ==
[~2019-04-21] VITALS: Ht 175.2 cm; Wt 81.6 kg
[~2019-04-21 03:16] MED LIST changes: +DICYCLOMINE HCL10 MG PO
[2019-04-21 03:54] LABS: BASO # 0.1 10*3/uL (0.0-0.1); BASO % 1.2 % (0.0-1.0); EOS # 0.1 10*3/uL (0.0-0.4); HEMATOCRIT 45.1 % (42.0-52.0); HEMOGLOBIN 15.5 g/dl (14.0-18.0); LYMPH # 0.8 10*3/uL (1.3-4.4); LYMPH % 9.3 % (27.0-41.0); MEAN CELL VOLUME 99.6 fl (80.0-94.0); MEAN CORPUSCULAR HGB 34.2 pg (27.0-31.0); MEAN CORPUSCULAR HGB CONC 34.4 g/dl (33.0-37.0); MEAN PLATELET VOLUME 9.3 fl (9.6-12.3); MONO # 0.8 10*3/uL (0.1-1.0); MONO % 9.3 % (3.0-9.0); NEUT # 6.8 10*3/uL (2.3-7.9); NEUT % 78.6 % (47.0-73.0); PLATELET COUNT AUTOMATED 315 10*3/uL (130-400); RED BLOOD COUNT 4.53 10*6/uL (4.50-5.90); RED CELL DISTRI WIDTH 15.9 % (0-14.5); WHITE BLOOD COUNT 8.7 10*3/uL (4.8-10.8)
[2019-04-21 04:10] LABS: ALKALINE PHOSPHATASE 46 U/L (45-117); BUN 14 mg/dl (7-24); CHLORIDE 103 mmol/L (98-107); CREATININE 1.06 mg/dL (0.70-1.30); POTASSIUM 4.4 mmol/L (3.5-5.1); SGOT/AST 37 IU/L (3-35); SGPT/ALT 35 U/L (12-78); SODIUM 138 mmol/L (136-145); TOTAL PROTEIN 7.9 gm/dL (6.4-8.2)
[2019-04-21 06:10] LABS: BILIRUBIN NEGATIVE (NEGATIVE); BLOOD NEGATIVE (NEGATIVE); CLARITY CLEAR (CLEAR); COLOR YELLOW (YELLOW); EPITHELIAL CELLS 0-2; GLUCOSE NEGATIVE (NEGATIVE); KETONE NEGATIVE (NEGATIVE); LEUKO ESTERASE NEGATIVE (NEGATIVE); NITRITE NEGATIVE (NEGATIVE); UROBILINOGEN 0.2 E.U./dl (0.2-1.0)
[2019-04-21 06:11] LABS: BACTERIA TRACE; MUCOUS 1+
[2019-04-21 09:34] VITALS: BP 173/99
== END 2019-04-21 09:59 | disposition short-term general hospital (02) ==
LOC: ED 03:16
PROVIDERS: Emergency Medicine
DX: K56.609 Unspecified intestinal obstruction, unspecified as to partial versus complete obstruction (principal); C18.9 Malignant neoplasm of colon, unspecified; R11.10 Vomiting, unspecified; Z93.3 Colostomy status; Z88.8 Allergy status to other drugs, medicaments and biological substances; Z79.899 Other long term (current) drug therapy; Z90.49 Acquired absence of other specified parts of digestive tract

== ENCOUNTER 2019-05-14 12:39 | Emergency (ER) | payer OTHER ==
[~2019-05-14] VITALS: Ht 170.1 cm; Wt 83.9 kg
[2019-05-14 12:43] VITALS: BP 116/55
== END 2019-05-14 14:27 | disposition home or self-care (01) ==
LOC: ED 12:39
DX: S59.901A Unspecified injury of right elbow, initial encounter (principal); Z88.8 Allergy status to other drugs, medicaments and biological substances; Z79.899 Other long term (current) drug therapy; X50.0XXA Overexertion from strenuous movement or load, initial encounter; Y93.89 Activity, other specified; Y92.89 Other specified places as the place of occurrence of the external cause; Y99.8 Other external cause status

== ENCOUNTER → 2019-06-08 | Outpatient (CLI) | payer OTHER ==
[2019-06-08 14:14] LABS: BASO # 0.1 10*3/uL (0.0-0.1); EOS # 0.1 10*3/uL (0.0-0.4); EOS % 1.5 % (1.0-4.0); LYMPH % 17.6 % (27.0-41.0); MEAN CELL VOLUME 98.4 fl (80.0-94.0); MEAN CORPUSCULAR HGB 34.6 pg (27.0-31.0); MEAN CORPUSCULAR HGB CONC 35.1 g/dl (33.0-37.0); MEAN PLATELET VOLUME 9.5 fl (9.6-12.3); MONO # 0.7 10*3/uL (0.1-1.0); MONO % 12.3 % (3.0-9.0); NEUT # 3.9 10*3/uL (2.3-7.9); NEUT % 66.7 % (47.0-73.0); PLATELET COUNT AUTOMATED 437 10*3/uL (130-400); RED BLOOD COUNT 3.76 10*6/uL (4.50-5.90); RED CELL DISTRI WIDTH 17.4 % (0-14.5); WHITE BLOOD COUNT 5.9 10*3/uL (4.8-10.8)
[2019-06-08 14:44] LABS: ALBUMIN 3.6 gm/dl (3.1-4.5); ALKALINE PHOSPHATASE 45 U/L (45-117); BUN 13 mg/dl (7-24); CHLORIDE 110 mmol/L (98-107); CHOLESTEROL 220 mg/dL (<200); CREATININE 1.01 mg/dL (0.70-1.30); FREE T4 0.86 ng/dl (0.76-1.46); HDL CHOLESTEROL 25 mg/dl (40-60); IRON 81 ug/dL (65-175); POTASSIUM 3.7 mmol/L (3.5-5.1); SGOT/AST 30 IU/L (3-35); SGPT/ALT 35 U/L (12-78); SODIUM 140 mmol/L (136-145); TRIGLYCERIDES 703 mg/dl (<150)
[2019-06-08 14:49] LABS: THYROID STIM HORMONE (HS) 0.764 uIU/ml (0.358-4.75)
== END | disposition home or self-care (01) ==
LOC: LAB 13:12
PROVIDERS: Internal Medicine
DX: Z00.00 Encounter for general adult medical examination without abnormal findings (principal); Z12.5 Encounter for screening for malignant neoplasm of prostate; E50.8 Other manifestations of vitamin A deficiency; I10 Essential (primary) hypertension; E55.9 Vitamin D deficiency, unspecified

== ENCOUNTER 2020-01-18 13:21 | Emergency (ER) | payer OTHER ==
[2020-01-18 13:27] VITALS: BP 163/79
[2020-01-18 13:57] LABS: BASO # 0.1 10*3/uL (0.0-0.1); BASO % 1.2 % (0.0-1.0); EOS # 0.1 10*3/uL (0.0-0.4); HEMATOCRIT 41.2 % (42.0-52.0); LYMPH # 0.8 10*3/uL (1.3-4.4); LYMPH % 12.4 % (27.0-41.0); MEAN CORPUSCULAR HGB 34.2 pg (27.0-31.0); MEAN CORPUSCULAR HGB CONC 34.2 g/dl (33.0-37.0); MEAN PLATELET VOLUME 9.1 fl (9.6-12.3); MONO # 1.2 10*3/uL (0.1-1.0); MONO % 17.4 % (3.0-9.0); NEUT # 4.5 10*3/uL (2.3-7.9); NEUT % 67.3 % (47.0-73.0); PLATELET COUNT AUTOMATED 403 10*3/uL (130-400); RED BLOOD COUNT 4.12 10*6/uL (4.50-5.90); RED CELL DISTRI WIDTH 16.5 % (0-14.5); WHITE BLOOD COUNT 6.7 10*3/uL (4.8-10.8)
[2020-01-18 14:08] LABS: ACT PARTIAL THROMBO TIME 26.9 SECONDS (20.0-32.1); INTERNATIONAL NORM RATIO 1.1 (2.0-3.5)
[2020-01-18 14:12] LABS: ALBUMIN 3.8 gm/dl (3.1-4.5); ALKALINE PHOSPHATASE 51 U/L (45-117); BUN 14 mg/dl (7-24); CHLORIDE 109 mmol/L (98-107); CREATININE 0.98 mg/dL (0.70-1.30); LIPASE 218 U/L (73-393); POTASSIUM 3.7 mmol/L (3.5-5.1); SGOT/AST 22 IU/L (3-35); SGPT/ALT 26 U/L (12-78); SODIUM 140 mmol/L (136-145)
[2020-01-18 14:23] LABS: TROPONIN I < 0.015 ng/ml (<0.045)
== END 2020-01-18 14:08 | disposition left against medical advice (07) ==
LOC: ED 13:21
PROVIDERS: Emergency Medicine
DX: R07.9 Chest pain, unspecified (principal); F41.9 Anxiety disorder, unspecified; Z88.8 Allergy status to other drugs, medicaments and biological substances; Z79.899 Other long term (current) drug therapy

== ENCOUNTER 2020-03-12 19:25 | Observation (INO) | payer OTHER ==
[~2020-03-12] VITALS: Ht 170.2 cm; Wt 81.6 kg
[2020-03-12 19:29] VITALS: BP 107/74
[2020-03-12 20:14] LABS: BASO # 0.1 10*3/uL (0.0-0.1); BASO % 0.7 % (0.0-1.0); EOS # 0.1 10*3/uL (0.0-0.4); EOS % 0.6 % (1.0-4.0); HEMATOCRIT 48.4 % (42.0-52.0); LYMPH % 9.3 % (27.0-41.0); MEAN CORPUSCULAR HGB 33.7 pg (27.0-31.0); MEAN CORPUSCULAR HGB CONC 34.1 g/dl (33.0-37.0); MEAN PLATELET VOLUME 9.4 fl (9.6-12.3); MONO # 1.3 10*3/uL (0.1-1.0); MONO % 11.6 % (3.0-9.0); NEUT # 8.3 10*3/uL (2.3-7.9); NEUT % 77.1 % (47.0-73.0); PLATELET COUNT AUTOMATED 446 10*3/uL (130-400); RED BLOOD COUNT 4.89 10*6/uL (4.50-5.90); RED CELL DISTRI WIDTH 16.2 % (0-14.5); WHITE BLOOD COUNT 10.7 10*3/uL (4.8-10.8)
[2020-03-12 20:29] LABS: ALBUMIN 4.6 gm/dl (3.1-4.5); ALKALINE PHOSPHATASE 64 U/L (45-117); BUN 20 mg/dl (7-24); CHLORIDE 104 mmol/L (98-107); CREATININE 1.12 mg/dL (0.70-1.30); LIPASE 115 U/L (73-393); POTASSIUM 3.9 mmol/L (3.5-5.1); SGOT/AST 25 IU/L (3-35); SGPT/ALT 31 U/L (12-78); SODIUM 136 mmol/L (136-145); TOTAL PROTEIN 8.9 gm/dL (6.4-8.2)
[2020-03-12 22:12] VITALS: BP 105/69
[2020-03-13] VITALS (8 sets, daily range): BP systolic 100–130; BP diastolic 60–76
[2020-03-13 08:53] LABS: BILIRUBIN Negative (Negative); BLOOD Negative (Negative); CLARITY Cloudy (Clear); COLOR Yellow (Yellow); GLUCOSE Negative (Negative); KETONE Trace (Negative); LEUKO ESTERASE Negative (Negative); NITRITE Negative (Negative); PH 5.5 (4.5-8.0); SPECIFIC GRAVITY >= 1.030 (1.001-1.030)
[2020-03-13 09:00] LABS: BACTERIA 1+; EPITHELIAL CELLS 0-2; HYALINE CAST 16-20; MUCOUS 1+; RBC 0-2 rbc/hpf (0-2)
[2020-03-14 08:00] VITALS: BP 128/60
[2020-03-14] MEDS ORDERED: ROBAXIN-750750 MG PO (08:32)
== END 2020-03-14 11:00 | disposition home or self-care (01) ==
LOC: ED 19:25 → EDHOLD 03-13 05:54 → 5E 03-13 05:54
PROVIDERS: Emergency Medicine; ADMIT Internal Medicine; ATTEND Internal Medicine
DX: M54.89 Other dorsalgia (principal); K56.609 Unspecified intestinal obstruction, unspecified as to partial versus complete obstruction; R11.2 Nausea with vomiting, unspecified; C91.10 Chronic lymphocytic leukemia of B-cell type not having achieved remission; F17.200 Nicotine dependence, unspecified, uncomplicated; K21.9 Gastro-esophageal reflux disease without esophagitis; F32.9 Major depressive disorder, single episode, unspecified; G89.29 Other chronic pain; K43.9 Ventral hernia without obstruction or gangrene; Z98.890 Other specified postprocedural states; Z85.038 Personal history of other malignant neoplasm of large intestine

== ENCOUNTER → 2020-03-28 | Outpatient (CLI) | payer OTHER ==
[~2020-03-28] MED LIST changes: +ROBAXIN-750750 MG PO
[2020-03-28 15:55] LABS: BUN 13 mg/dl (7-24); CREATININE 1.15 mg/dL (0.70-1.30)
== END | disposition home or self-care (01) ==
LOC: LAB 15:17
PROVIDERS: ATTEND Internal Medicine Hematology & Oncology
DX: R07.9 Chest pain, unspecified (principal)

== ENCOUNTER 2020-07-15 12:51 | Emergency (ER) | payer OTHER ==
[~2020-07-15] VITALS: Ht 172.7 cm; Wt 81.6 kg
[2020-07-15 13:09] VITALS: BP 111/62
[2020-07-15 14:21] LABS: HEMATOCRIT 42.9 % (42.0-52.0); MEAN CELL VOLUME 91.9 fl (80.0-94.0); MEAN CORPUSCULAR HGB 30.8 pg (27.0-31.0); MEAN CORPUSCULAR HGB CONC 33.6 g/dl (33.0-37.0); MEAN PLATELET VOLUME 10.1 fl (9.6-12.3); NUCLEATED RED BLOOD CELL 0.2 % (0.0-0.0); PLATELET COUNT AUTOMATED 334 10*3/uL (130-400); RED BLOOD COUNT 4.67 10*6/uL (4.50-5.90); RED CELL DISTRI WIDTH 18.4 % (0-14.5); WHITE BLOOD COUNT 8.8 10*3/uL (4.8-10.8)
[2020-07-15 14:37] LABS: ALBUMIN 3.7 gm/dl (3.1-4.5); BUN 20 mg/dl (7-24); CHLORIDE 109 mmol/L (98-107); CREATININE 1.33 mg/dL (0.70-1.30); LIPASE 76 U/L (73-393); POTASSIUM 3.8 mmol/L (3.5-5.1); SGOT/AST 28 IU/L (3-35); SGPT/ALT 40 U/L (12-78); SODIUM 138 mmol/L (136-145); TOTAL PROTEIN 7.9 gm/dL (6.4-8.2)
[2020-07-15 14:38] LABS: ALKALINE PHOSPHATASE 62 U/L (45-117)
[2020-07-15 14:50] LABS: BASOPHILS 2 % (0-1); TOTAL CELLS COUNTED 100 #CELLS
[2020-07-15 14:52] LABS: PLATELET SUFFICIENCY NORMAL (NORMAL); POLYCHROMASIA SLIGHT
[2020-07-15 14:53] LABS: MICROCYTOSIS SLIGHT
[2020-07-15] MEDS ORDERED: ZOFRAN4 MG PO (15:59)
[2020-07-15] MEDS ORDERED: PROTONIX40 MG PO (15:59)
== END 2020-07-15 16:16 | disposition home or self-care (01) ==
LOC: ED 12:51
PROVIDERS: Family Medicine
DX: T50.905A Adverse effect of unspecified drugs, medicaments and biological substances, initial encounter (principal); R11.2 Nausea with vomiting, unspecified; Z88.8 Allergy status to other drugs, medicaments and biological substances; Z79.899 Other long term (current) drug therapy; Z98.890 Other specified postprocedural states; Z90.49 Acquired absence of other specified parts of digestive tract; Y92.89 Other specified places as the place of occurrence of the external cause

== ENCOUNTER 2020-07-16 00:44 | Observation (INO) | payer OTHER ==
[~2020-07-16] VITALS: Ht 167.6 cm; Wt 84.3 kg
[~2020-07-16 00:44] MED LIST changes: +PROTONIX40 MG PO
[2020-07-16 00:55] VITALS: BP 118/69
[2020-07-16 04:12] VITALS: BP 116/78
[2020-07-16 08:00] VITALS: BP 122/60
[2020-07-16 12:00] VITALS: BP 129/70
[2020-07-16 16:00] VITALS: BP 133/73
[2020-07-16 20:00] VITALS: BP 129/70
[2020-07-17] VITALS: BP 112/65
[2020-07-17 06:15] LABS: BASO # 0.1 10*3/uL (0.0-0.1); BASO % 1.5 % (0.0-1.0); EOS # 0.1 10*3/uL (0.0-0.4); EOS % 1.5 % (1.0-4.0); HEMATOCRIT 41.1 % (42.0-52.0); LYMPH # 1.1 10*3/uL (1.3-4.4); LYMPH % 16.1 % (27.0-41.0); MEAN CELL VOLUME 94.5 fl (80.0-94.0); MEAN CORPUSCULAR HGB 30.6 pg (27.0-31.0); MEAN CORPUSCULAR HGB CONC 32.4 g/dl (33.0-37.0); MEAN PLATELET VOLUME 9.3 fl (9.6-12.3); MONO # 1.3 10*3/uL (0.1-1.0); NEUT # 3.9 10*3/uL (2.3-7.9); NEUT % 59.9 % (47.0-73.0); PLATELET COUNT AUTOMATED 275 10*3/uL (130-400); RED BLOOD COUNT 4.35 10*6/uL (4.50-5.90); RED CELL DISTRI WIDTH 18.6 % (0-14.5); WHITE BLOOD COUNT 6.6 10*3/uL (4.8-10.8)
[2020-07-17 06:44] LABS: BUN 16 mg/dl (7-24); CHLORIDE 114 mmol/L (98-107); CREATININE 0.97 mg/dL (0.70-1.30); POTASSIUM 4.1 mmol/L (3.5-5.1); SODIUM 138 mmol/L (136-145)
[2020-07-17 08:28] VITALS: BP 132/70
== END 2020-07-17 09:42 | disposition home or self-care (01) ==
LOC: ED 00:44 → 5E 05:29 → EDHOLD 05:29 → 5E 06:33
PROVIDERS: ADMIT Internal Medicine; ATTEND Internal Medicine
DX: K56.609 Unspecified intestinal obstruction, unspecified as to partial versus complete obstruction (principal); K29.70 Gastritis, unspecified, without bleeding; N17.9 Acute kidney failure, unspecified; M54.5 Low back pain; G89.29 Other chronic pain; K43.6 Other and unspecified ventral hernia with obstruction, without gangrene; K21.9 Gastro-esophageal reflux disease without esophagitis; F32.9 Major depressive disorder, single episode, unspecified

== ENCOUNTER 2020-11-03 07:55 | Emergency (ER) | payer OTHER ==
[~2020-11-03] VITALS: Ht 170.1 cm; Wt 81.6 kg
[2020-11-03 08:54] VITALS: BP 153/72
[2020-11-03 11:56] LABS: HEMATOCRIT 46.5 % (42.0-52.0); MEAN CELL VOLUME 89.1 fl (80.0-94.0); MEAN CORPUSCULAR HGB 29.1 pg (27.0-31.0); MEAN CORPUSCULAR HGB CONC 32.7 g/dl (33.0-37.0); MEAN PLATELET VOLUME 9.1 fl (9.6-12.3); NUCLEATED RED BLOOD CELL 0.1 % (0.0-0.0); PLATELET COUNT AUTOMATED 425 10*3/uL (130-400); RED BLOOD COUNT 5.22 10*6/uL (4.50-5.90); RED CELL DISTRI WIDTH 20.4 % (0-14.5); WHITE BLOOD COUNT 17.1 10*3/uL (4.8-10.8)
[2020-11-03 12:11] LABS: ALBUMIN 4.5 gm/dl (3.1-4.5); ALKALINE PHOSPHATASE 68 U/L (45-117); BUN 17 mg/dl (7-24); CHLORIDE 103 mmol/L (98-107); CREATININE 1.05 mg/dL (0.70-1.30); LIPASE 220 U/L (73-393); POTASSIUM 4.2 mmol/L (3.5-5.1); SGOT/AST 25 IU/L (3-35); SGPT/ALT 33 U/L (12-78); SODIUM 137 mmol/L (136-145); TOTAL PROTEIN 8.8 gm/dL (6.4-8.2)
[2020-11-03 12:13] LABS: BASOPHILS 2 % (0-1); PLATELET SUFFICIENCY HIGH (NORMAL); TOTAL CELLS COUNTED 100 #CELLS
[2020-11-03] MEDS ORDERED: CEPHALEXIN500 M1 PO (16:22)
[2020-11-03] MEDS ORDERED: SEPTDS PO (16:22)
== END 2020-11-03 16:50 | disposition home or self-care (01) ==
LOC: ED 07:55
PROVIDERS: Physician Assistant
DX: L03.111 Cellulitis of right axilla (principal); A41.9 Sepsis, unspecified organism

== ENCOUNTER 2021-02-13 22:21 | Emergency (ER) | payer OTHER ==
[~2021-02-13] VITALS: Ht 170.1 cm; Wt 86.2 kg
[~2021-02-13 22:21] MED LIST changes: +CEPHALEXIN500 M1 PO; +SEPTDS PO
[2021-02-13 22:33] VITALS: BP 128/65
== END 2021-02-14 00:34 | disposition home or self-care (01) ==
LOC: ED 22:21
DX: H61.22 Impacted cerumen, left ear (principal); Z79.899 Other long term (current) drug therapy; Z88.8 Allergy status to other drugs, medicaments and biological substances

== ENCOUNTER 2021-03-16 19:01 | Emergency (ER) | payer OTHER ==
[~2021-03-16] VITALS: Ht 170.1 cm; Wt 90.7 kg
[2021-03-16 19:53] LABS: HEMATOCRIT 39.5 % (42.0-52.0); MEAN CELL VOLUME 90.8 fl (80.0-94.0); MEAN CORPUSCULAR HGB 29.4 pg (27.0-31.0); MEAN CORPUSCULAR HGB CONC 32.4 g/dl (33.0-37.0); MEAN PLATELET VOLUME 9.5 fl (9.6-12.3); NUCLEATED RED BLOOD CELL 0.2 % (0.0-0.0); PLATELET COUNT AUTOMATED 372 10*3/uL (130-400); RED BLOOD COUNT 4.35 10*6/uL (4.50-5.90); RED CELL DISTRI WIDTH 19.7 % (0-14.5); WHITE BLOOD COUNT 13.2 10*3/uL (4.8-10.8)
[2021-03-16 20:10] LABS: ALBUMIN 3.6 gm/dl (3.1-4.5); ALKALINE PHOSPHATASE 55 U/L (45-117); BUN 9 mg/dl (7-24); CHLORIDE 109 mmol/L (98-107); LIPASE 150 U/L (73-393); POTASSIUM 3.9 mmol/L (3.5-5.1); SGOT/AST 31 IU/L (3-35); SGPT/ALT 30 U/L (12-78); SODIUM 140 mmol/L (136-145); TOTAL PROTEIN 7.6 gm/dL (6.4-8.2)
[2021-03-16 20:25] LABS: BURR CELLS FEW; OVALOCYTES FEW; PLATELET SUFFICIENCY NORMAL (NORMAL); TOTAL CELLS COUNTED 100 #CELLS
[2021-03-16 20:26] LABS: POLYCHROMASIA SLIGHT
[2021-03-16 23:09] VITALS: BP 122/75
== END 2021-03-16 23:10 | disposition left against medical advice (07) ==
LOC: ED 19:01
PROVIDERS: Physician Assistant
DX: R10.9 Unspecified abdominal pain (principal); R11.2 Nausea with vomiting, unspecified; Z88.8 Allergy status to other drugs, medicaments and biological substances; Z79.899 Other long term (current) drug therapy; Z90.49 Acquired absence of other specified parts of digestive tract; Z98.890 Other specified postprocedural states

== ENCOUNTER 2021-03-20 12:38 | Emergency (ER) | payer OTHER ==
[~2021-03-20] VITALS: Ht 170.1 cm; Wt 86.2 kg
[2021-03-20 12:44] VITALS: BP 143/90
[2021-03-20 13:41] LABS: HEMATOCRIT 36.6 % (42.0-52.0); MEAN CELL VOLUME 89.5 fl (80.0-94.0); MEAN CORPUSCULAR HGB 30.1 pg (27.0-31.0); MEAN CORPUSCULAR HGB CONC 33.6 g/dl (33.0-37.0); MEAN PLATELET VOLUME 9.5 fl (9.6-12.3); NUCLEATED RED BLOOD CELL 0.2 % (0.0-0.0); PLATELET COUNT AUTOMATED 364 10*3/uL (130-400); RED BLOOD COUNT 4.09 10*6/uL (4.50-5.90); RED CELL DISTRI WIDTH 19.3 % (0-14.5); WHITE BLOOD COUNT 12.9 10*3/uL (4.8-10.8)
[2021-03-20 13:58] LABS: ALBUMIN 3.4 gm/dl (3.1-4.5); ALKALINE PHOSPHATASE 51 U/L (45-117); BUN 9 mg/dl (7-24); CHLORIDE 108 mmol/L (98-107); CREATININE 0.92 mg/dL (0.70-1.30); POTASSIUM 3.7 mmol/L (3.5-5.1); SGOT/AST 24 IU/L (3-35); SGPT/ALT 29 U/L (12-78); SODIUM 138 mmol/L (136-145)
[2021-03-20 13:59] LABS: LIPASE 3098 U/L (73-393)
[2021-03-20 14:16] LABS: BASOPHILS 1 % (0-1); TOTAL CELLS COUNTED 100 #CELLS
[2021-03-20 14:17] LABS: OVALOCYTES FEW; POLYCHROMASIA SLIGHT
[2021-03-20 14:19] LABS: MICROCYTOSIS SLIGHT
[2021-03-20 14:21] LABS: PLATELET SUFFICIENCY NORMAL (NORMAL)
[2021-03-20] MEDS ORDERED: PROTONIX40 MG PO (15:23)
[2021-03-20] MEDS ORDERED: PEPCID20 MG PO (15:23)
== END 2021-03-20 15:29 | disposition home or self-care (01) ==
LOC: ED 12:38
PROVIDERS: Physician Assistant
DX: J02.9 Acute pharyngitis, unspecified (principal); K21.9 Gastro-esophageal reflux disease without esophagitis; Z88.8 Allergy status to other drugs, medicaments and biological substances; Z79.899 Other long term (current) drug therapy; Z98.890 Other specified postprocedural states; Z90.49 Acquired absence of other specified parts of digestive tract

== ENCOUNTER 2021-05-14 13:40 | Inpatient (IN) | payer OTHER ==
[~2021-05-14] VITALS: Ht 170.1 cm; Wt 81.6 kg
[~2021-05-14 13:40] MED LIST changes: +PEPCID20 MG PO
[2021-05-14 13:46] VITALS: BP 126/75
[2021-05-14 14:14] LABS: HEMATOCRIT 41.7 % (42.0-52.0); MEAN CELL VOLUME 89.3 fl (80.0-94.0); MEAN CORPUSCULAR HGB 29.6 pg (27.0-31.0); MEAN CORPUSCULAR HGB CONC 33.1 g/dl (33.0-37.0); MEAN PLATELET VOLUME 9.7 fl (9.6-12.3); NUCLEATED RED BLOOD CELL 0.4 % (0.0-0.0); PLATELET COUNT AUTOMATED 351 10*3/uL (130-400); RED BLOOD COUNT 4.67 10*6/uL (4.50-5.90); RED CELL DISTRI WIDTH 21.1 % (0-14.5); WHITE BLOOD COUNT 9.1 10*3/uL (4.8-10.8)
[2021-05-14 14:16] LABS: MANUAL DIFF REFLEX YES
[2021-05-14 14:25] LABS: ACT PARTIAL THROMBO TIME 29.9 SECONDS (20.0-32.1); INTERNATIONAL NORM RATIO 1.1 (2.0-3.5)
[2021-05-14 14:30] LABS: ALKALINE PHOSPHATASE 52 U/L (45-117); BUN 13 mg/dl (7-24); CHLORIDE 111 mmol/L (98-107); CREATININE 0.91 mg/dL (0.70-1.30); SGOT/AST 26 IU/L (3-35); SGPT/ALT 29 U/L (12-78); SODIUM 139 mmol/L (136-145); TOTAL PROTEIN 7.4 gm/dL (6.4-8.2)
[2021-05-14 14:43] LABS: ATYPICAL LYMPHS 4 % (0-0); BASOPHILS 3 % (0-1); PLATELET SUFFICIENCY NORMAL (NORMAL); TOTAL CELLS COUNTED 100 #CELLS
[2021-05-14 14:44] LABS: BURR CELLS FEW; OVALOCYTES FEW
[2021-05-14 15:13] VITALS: BP 131/84
[2021-05-14 17:05] VITALS: BP 126/67
[2021-05-14] MEDS ORDERED: BUSPIRONE HCL10 MG PO (17:47)
[2021-05-14] MEDS ORDERED: CETIRIZINE HYDR10 MG PO (17:48)
[2021-05-14] MEDS ORDERED: DICLOFENAC SOD100 G1 T (17:49)
[2021-05-14] MEDS ORDERED: FEROSUL325 M1 PO (17:51)
[2021-05-14 20:00] VITALS: BP 123/71
[2021-05-15] VITALS: BP 126/56
[2021-05-15 06:17] LABS: HEMATOCRIT 38.3 % (42.0-52.0); MEAN CELL VOLUME 89.7 fl (80.0-94.0); MEAN CORPUSCULAR HGB 30.4 pg (27.0-31.0); MEAN CORPUSCULAR HGB CONC 33.9 g/dl (33.0-37.0); MEAN PLATELET VOLUME 10.3 fl (9.6-12.3); NUCLEATED RED BLOOD CELL 0.1 10*3/uL (0.0-0.0); NUCLEATED RED BLOOD CELL 0.8 % (0.0-0.0); PLATELET COUNT AUTOMATED 328 10*3/uL (130-400); RED BLOOD COUNT 4.27 10*6/uL (4.50-5.90); RED CELL DISTRI WIDTH 21.2 % (0-14.5); WHITE BLOOD COUNT 8.3 10*3/uL (4.8-10.8)
[2021-05-15 06:40] LABS: ALKALINE PHOSPHATASE 78 U/L (45-117); CHLORIDE 111 mmol/L (98-107); CREATININE 0.93 mg/dL (0.70-1.30); FREE T4 0.86 ng/dl (0.76-1.46); POTASSIUM 3.9 mmol/L (3.5-5.1); SGOT/AST 96 IU/L (3-35); SGPT/ALT 81 U/L (12-78); SODIUM 139 mmol/L (136-145); TOTAL PROTEIN 6.7 gm/dL (6.4-8.2)
[2021-05-15 06:46] LABS: BUN 20 mg/dl (7-24); CHOLESTEROL 150 mg/dL (<200); TRIGLYCERIDES 731 mg/dl (<150)
[2021-05-15 06:48] LABS: MANUAL DIFF REFLEX YES
[2021-05-15 07:02] LABS: VITAMIN D, 25-HYDROXY 25.1 ng/mL (30-100)
[2021-05-15 07:45] LABS: ATYPICAL LYMPHS 3 % (0-0); BASOPHILS 1 % (0-1); OVALOCYTES FEW; PLATELET SUFFICIENCY NORMAL (NORMAL); POLYCHROMASIA SLIGHT; SCHISTOCYTES FEW; TOTAL CELLS COUNTED 100 #CELLS
[2021-05-15 08:00] VITALS: BP 146/58
== END 2021-05-15 16:08 | disposition left against medical advice (07) | DRG 203 ==
LOC: ED 13:40 → 4E 15:53 → EDHOLD 15:53 → 4E 16:14
PROVIDERS: Emergency Medicine; Family Medicine; ADMIT Emergency Medicine; ATTEND Emergency Medicine
PROC: 4A02XM4 Measurement of Cardiac Total Activity, External Approach (ICD-10-PCS; principal; 2021-05-15)
PROC: 3E073KZ Introduction of Other Diagnostic Substance into Coronary Artery, Percutaneous Approach (ICD-10-PCS; 2021-05-15)
DX: R07.89 Other chest pain (principal); F41.9 Anxiety disorder, unspecified; J02.9 Acute pharyngitis, unspecified; E87.8 Other disorders of electrolyte and fluid balance, not elsewhere classified; R73.9 Hyperglycemia, unspecified; D64.9 Anemia, unspecified; C95.90 Leukemia, unspecified not having achieved remission; Z85.038 Personal history of other malignant neoplasm of large intestine; R06.02 Shortness of breath; R00.2 Palpitations; Z53.29 Procedure and treatment not carried out because of patient's decision for other reasons; Z79.51 Long term (current) use of inhaled steroids; Z88.8 Allergy status to other drugs, medicaments and biological substances; Z79.1 Long term (current) use of non-steroidal anti-inflammatories (NSAID); Z79.899 Other long term (current) drug therapy

== ENCOUNTER 2021-08-11 21:34 | Emergency (ER) | payer OTHER ==
[~2021-08-11] VITALS: Wt 83.9 kg
[~2021-08-11 21:34] MED LIST changes: +BUSPIRONE HCL10 MG PO; +CETIRIZINE HYDR10 MG PO; +DICLOFENAC SOD100 G1 T; +FEROSUL325 M1 PO
[2021-08-11 22:50] LABS: HEMATOCRIT 39.5 % (42.0-52.0); MEAN CELL VOLUME 90.4 fl (80.0-94.0); MEAN CORPUSCULAR HGB 29.7 pg (27.0-31.0); MEAN CORPUSCULAR HGB CONC 32.9 g/dl (33.0-37.0); MEAN PLATELET VOLUME 9.9 fl (9.6-12.3); NUCLEATED RED BLOOD CELL 0.1 10*3/uL (0.0-0.0); NUCLEATED RED BLOOD CELL 0.7 % (0.0-0.0); PLATELET COUNT AUTOMATED 329 10*3/uL (130-400); RED BLOOD COUNT 4.37 10*6/uL (4.50-5.90); RED CELL DISTRI WIDTH 22.6 % (0-14.5); WHITE BLOOD COUNT 11.6 10*3/uL (4.8-10.8)
[2021-08-11 22:51] LABS: MANUAL DIFF REFLEX YES
[2021-08-11 23:08] LABS: ALKALINE PHOSPHATASE 49 U/L (45-117); BUN 20 mg/dl (7-24); CHLORIDE 109 mmol/L (98-107); CREATININE 1.11 mg/dL (0.70-1.30); LIPASE 280 U/L (73-393); SGOT/AST 33 IU/L (3-35); SGPT/ALT 34 U/L (12-78); SODIUM 139 mmol/L (136-145); TOTAL PROTEIN 7.1 gm/dL (6.4-8.2)
[2021-08-11 23:24] LABS: TOTAL CELLS COUNTED 100 #CELLS
[2021-08-11 23:25] LABS: OVALOCYTES FEW; PLATELET SUFFICIENCY NORMAL (NORMAL)
[2021-08-12 05:21] VITALS: BP 140/80
== END 2021-08-12 07:18 | disposition left against medical advice (07) ==
LOC: ED 21:34
PROVIDERS: Emergency Medicine
DX: K56.609 Unspecified intestinal obstruction, unspecified as to partial versus complete obstruction (principal)

== ENCOUNTER 2021-09-10 18:00 | Emergency (ER) | payer OTHER ==
[~2021-09-10] VITALS: Ht 170.1 cm; Wt 79.4 kg
[2021-09-10 18:34] VITALS: BP 127/67
[2021-09-10] MEDS ORDERED: CORTISPORIN SOL10 M1 OT (19:40)
[2021-09-10] MEDS ORDERED: OMNICEF300 MG PO (19:40)
== END 2021-09-10 19:50 | disposition home or self-care (01) ==
LOC: ED 18:00
DX: H60.92 Unspecified otitis externa, left ear (principal); Z88.8 Allergy status to other drugs, medicaments and biological substances; Z98.890 Other specified postprocedural states; Z90.49 Acquired absence of other specified parts of digestive tract; Z87.891 Personal history of nicotine dependence

== ENCOUNTER 2022-04-26 02:58 | Emergency (ER) | payer OTHER ==
[~2022-04-26] VITALS: Ht 170.1 cm; Wt 80.4 kg
[~2022-04-26 02:58] MED LIST changes: +CORTISPORIN SOL10 M1 OT; +FEROSUL325 MG PO; +HYDROCODONE-AC1 EAC2 PO; +IBU800 M1 PO; +LIPITOR40 MG PO; +LYRICA100 M1 PO; +OMEPRAZOLE MAGN20 MG PO; +OMNICEF300 MG PO; +PROTONIX20 MG PO
[2022-04-26 03:36] LABS: HEMATOCRIT 43.8 % (42.0-52.0); MEAN CELL VOLUME 93.4 fl (80.0-94.0); MEAN CORPUSCULAR HGB 30.5 pg (27.0-31.0); MEAN CORPUSCULAR HGB CONC 32.6 g/dl (33.0-37.0); MEAN PLATELET VOLUME 9.2 fl (9.6-12.3); NUCLEATED RED BLOOD CELL 0.2 10*3/uL (0.0-0.0); NUCLEATED RED BLOOD CELL 0.8 % (0.0-0.0); PLATELET COUNT AUTOMATED 367 10*3/uL (130-400); RED BLOOD COUNT 4.69 10*6/uL (4.50-5.90); RED CELL DISTRI WIDTH 21.3 % (0-14.5); WHITE BLOOD COUNT 18.7 10*3/uL (4.8-10.8)
[2022-04-26 03:42] LABS: MANUAL DIFF REFLEX YES
[2022-04-26 03:53] LABS: ALKALINE PHOSPHATASE 58 U/L (46-116); BUN 20 mg/dl (9-23); CHLORIDE 103 mmol/L (98-107); LIPASE 34 U/L (12-53); POTASSIUM 3.9 mmol/L (3.4-5.1); SGPT/ALT 19 U/L (10-49)
[2022-04-26 04:01] LABS: PLATELET SUFFICIENCY NORMAL (NORMAL); POLYCHROMASIA SLIGHT; TOTAL CELLS COUNTED 100 #CELLS
[2022-04-26 04:02] LABS: MICROCYTOSIS SLIGHT; OVALOCYTES FEW
[2022-04-26 06:34] VITALS: BP 163/80
== END 2022-04-26 06:35 | disposition left against medical advice (07) ==
LOC: ED 02:58
PROVIDERS: Emergency Medicine
DX: K56.699 Other intestinal obstruction unspecified as to partial versus complete obstruction (principal); Z88.8 Allergy status to other drugs, medicaments and biological substances; Z98.890 Other specified postprocedural states; Z72.0 Tobacco use; F32.A Depression, unspecified; F41.9 Anxiety disorder, unspecified

== ENCOUNTER 2022-05-19 17:48 | Emergency (ER) | payer OTHER ==
[~2022-05-19] VITALS: Wt 79.4 kg
[2022-05-19 18:53] LABS: HEMATOCRIT 46.2 % (42.0-52.0); MEAN CELL VOLUME 91.8 fl (80.0-94.0); MEAN CORPUSCULAR HGB 30.8 pg (27.0-31.0); MEAN CORPUSCULAR HGB CONC 33.5 g/dl (33.0-37.0); MEAN PLATELET VOLUME 10.3 fl (9.6-12.3); NUCLEATED RED BLOOD CELL 0.2 10*3/uL (0.0-0.0); NUCLEATED RED BLOOD CELL 1.2 % (0.0-0.0); PLATELET COUNT AUTOMATED 389 10*3/uL (130-400); RED BLOOD COUNT 5.03 10*6/uL (4.50-5.90); RED CELL DISTRI WIDTH 21.3 % (0-14.5); WHITE BLOOD COUNT 13.8 10*3/uL (4.8-10.8)
[2022-05-19 18:59] LABS: MANUAL DIFF REFLEX YES
[2022-05-19 19:26] LABS: TOTAL CELLS COUNTED 100 #CELLS
[2022-05-19 19:27] LABS: OVALOCYTES FEW; PLATELET SUFFICIENCY NORMAL (NORMAL)
[2022-05-19 19:30] VITALS: BP 121/66
[2022-05-19 19:30] LABS: ALKALINE PHOSPHATASE 61 U/L (46-116); BUN 25 mg/dl (9-23); CHLORIDE 105 mmol/L (98-107); LIPASE 41 U/L (12-53); POTASSIUM 4.1 mmol/L (3.4-5.1); SGPT/ALT 26 U/L (10-49); TOTAL PROTEIN 8.1 gm/dL (6.0-8.0)
[2022-05-20 07:25] LABS: BASOPHILS 2 % (0-1)
[2022-05-20 07:31] LABS: BLASTS 2 % (0-0)
== END 2022-05-19 22:11 | disposition left against medical advice (07) ==
LOC: ED 17:48
PROVIDERS: Emergency Medicine
DX: K56.699 Other intestinal obstruction unspecified as to partial versus complete obstruction (principal); F32.A Depression, unspecified; F41.9 Anxiety disorder, unspecified; Z88.8 Allergy status to other drugs, medicaments and biological substances; Z98.890 Other specified postprocedural states; Z90.49 Acquired absence of other specified parts of digestive tract; F12.90 Cannabis use, unspecified, uncomplicated; Z20.822 Contact with and (suspected) exposure to COVID-19

== ENCOUNTER 2022-09-23 17:05 | Emergency (ER) | payer OTHER ==
[~2022-09-23] VITALS: Wt 76.2 kg
[2022-09-23 17:15] VITALS: BP 141/65
[2022-09-23] MEDS ORDERED: CYCLOBENZAPRINE10 MG PO (18:52)
== END 2022-09-23 19:17 | disposition home or self-care (01) ==
LOC: ED 17:05
DX: S39.012A Strain of muscle, fascia and tendon of lower back, initial encounter (principal); F32.A Depression, unspecified; F41.9 Anxiety disorder, unspecified; Z88.8 Allergy status to other drugs, medicaments and biological substances; Z98.890 Other specified postprocedural states; Z90.89 Acquired absence of other organs; F12.90 Cannabis use, unspecified, uncomplicated; Z72.0 Tobacco use; X50.1XXA Overexertion from prolonged static or awkward postures, initial encounter; Y93.89 Activity, other specified; Y92.89 Other specified places as the place of occurrence of the external cause; Y99.8 Other external cause status

== ENCOUNTER 2022-09-24 14:52 | Emergency (ER) | payer OTHER ==
[~2022-09-24] VITALS: Wt 76.2 kg
[~2022-09-24 14:52] MED LIST changes: +CYCLOBENZAPRINE10 MG PO
[2022-09-24 14:59] VITALS: BP 142/62
== END 2022-09-24 17:30 | disposition home or self-care (01) ==
LOC: ED 14:52
DX: S39.012A Strain of muscle, fascia and tendon of lower back, initial encounter (principal); F32.A Depression, unspecified; F41.9 Anxiety disorder, unspecified; Z88.8 Allergy status to other drugs, medicaments and biological substances; Z98.890 Other specified postprocedural states; Z90.49 Acquired absence of other specified parts of digestive tract; Z72.0 Tobacco use; F12.90 Cannabis use, unspecified, uncomplicated; X58.XXXA Exposure to other specified factors, initial encounter; Y93.89 Activity, other specified; Y92.89 Other specified places as the place of occurrence of the external cause; Y99.8 Other external cause status

== ENCOUNTER 2023-06-27 20:47 | Emergency (ER) | payer OTHER ==
[~2023-06-27] VITALS: Ht 165.1 cm; Wt 77.1 kg
[2023-06-27 20:56] VITALS: BP 161/69
[2023-06-27 21:38] LABS: HEMATOCRIT 34.2 % (42.0-52.0); MANUAL DIFF REFLEX YES; MEAN CELL VOLUME 93.2 fl (80.0-94.0); MEAN CORPUSCULAR HGB 30.5 pg (27.0-31.0); MEAN CORPUSCULAR HGB CONC 32.7 g/dl (33.0-37.0); MEAN PLATELET VOLUME 10.3 fl (9.6-12.3); NUCLEATED RED BLOOD CELL 0.1 10*3/uL (0.0-0.0); NUCLEATED RED BLOOD CELL 0.7 % (0.0-0.0); PLATELET COUNT AUTOMATED 272 10*3/uL (130-400); RED BLOOD COUNT 3.67 10*6/uL (4.50-5.90); WHITE BLOOD COUNT 8.6 10*3/uL (4.8-10.8)
[2023-06-27 21:59] LABS: ALKALINE PHOSPHATASE 49 U/L (46-116); BUN 14 mg/dl (9-23); CHLORIDE 109 mmol/L (98-107); LIPASE 48 U/L (12-53); POTASSIUM 4.3 mmol/L (3.4-5.1); SGPT/ALT 9 U/L (5-49); TOTAL PROTEIN 6.4 gm/dL (6.0-8.0)
[2023-06-27 22:12] LABS: BASOPHILS 3 % (0-1); PLATELET SUFFICIENCY NORMAL (NORMAL); POLYCHROMASIA SLIGHT; SCHISTOCYTES FEW; TOTAL CELLS COUNTED 100 #CELLS
[2023-06-27] MEDS ORDERED: HYDROmorphONE Hydrochloride 1 MG/ML SYR IV ONE (22:35)
[2023-06-27] MEDS ORDERED: Ondansetron Hydrochloride 4 MG/2 ML VIAL IV ONE (22:35)
[2023-06-27] MEDS ORDERED: MEPERIDINE HYDROCHLORIDE 25 MG/1 ML VIAL IM ONE (22:50)
[2023-06-27] MEDS ORDERED: Promethazine Hydrochloride 25 MG/ML VIAL IM ONE (22:55)
== END 2023-06-27 23:08 | disposition home or self-care (01) ==
LOC: ED 20:47
PROVIDERS: Internal Medicine
DX: K43.9 Ventral hernia without obstruction or gangrene (principal); F32.A Depression, unspecified; F41.9 Anxiety disorder, unspecified; Z88.8 Allergy status to other drugs, medicaments and biological substances; Z98.890 Other specified postprocedural states; Z90.49 Acquired absence of other specified parts of digestive tract; F12.90 Cannabis use, unspecified, uncomplicated; Z72.0 Tobacco use

== ENCOUNTER 2023-07-16 20:17 | Emergency (ER) | payer OTHER ==
[~2023-07-16] VITALS: Ht 170.1 cm; Wt 81.6 kg
[2023-07-16 21:03] VITALS: BP 151/70
[2023-07-16] MEDS ORDERED: IOHEXOL 300 MG/ML 100 ML VIAL IV ONE (21:35)
[2023-07-16 21:55] LABS: HEMATOCRIT 34.9 % (42.0-52.0); MEAN CELL VOLUME 93.1 fl (80.0-94.0); MEAN CORPUSCULAR HGB 30.1 pg (27.0-31.0); MEAN CORPUSCULAR HGB CONC 32.4 g/dl (33.0-37.0); MEAN PLATELET VOLUME 9.6 fl (9.6-12.3); PLATELET COUNT AUTOMATED 301 10*3/uL (130-400); RED BLOOD COUNT 3.75 10*6/uL (4.50-5.90); RED CELL DISTRI WIDTH 20.7 % (0-14.5); WHITE BLOOD COUNT 7.7 10*3/uL (4.8-10.8)
[2023-07-16 21:59] LABS: MANUAL DIFF REFLEX YES
[2023-07-16 22:13] LABS: ALKALINE PHOSPHATASE 55 U/L (46-116); BUN 17 mg/dl (9-23); CHLORIDE 109 mmol/L (98-107); LIPASE 46 U/L (12-53); POTASSIUM 3.9 mmol/L (3.4-5.1); SGPT/ALT 13 U/L (5-49)
[2023-07-16 22:15] LABS: ACT PARTIAL THROMBO TIME 31.3 SECONDS (20.0-32.1)
[2023-07-16 22:30] LABS: PLATELET SUFFICIENCY NORMAL (NORMAL); TOTAL CELLS COUNTED 100 #CELLS
[2023-07-16 22:31] LABS: OVALOCYTES FEW
[2023-07-16 22:47] LABS: BASOPHILS 2 % (0-1)
== END 2023-07-17 01:02 | disposition left against medical advice (07) ==
LOC: ED 20:17
PROVIDERS: Internal Medicine
DX: M54.50 Low back pain, unspecified (principal); R10.9 Unspecified abdominal pain; F17.200 Nicotine dependence, unspecified, uncomplicated; Z89.512 Acquired absence of left leg below knee; Z88.8 Allergy status to other drugs, medicaments and biological substances; Z79.899 Other long term (current) drug therapy; Z79.2 Long term (current) use of antibiotics; Z98.890 Other specified postprocedural states; Z53.29 Procedure and treatment not carried out because of patient's decision for other reasons; W01.0XXA Fall on same level from slipping, tripping and stumbling without subsequent striking against object, initial encounter; Y93.89 Activity, other specified; Y92.89 Other specified places as the place of occurrence of the external cause; Y99.8 Other external cause status

== ENCOUNTER 2023-09-16 11:34 | Inpatient (IN) | payer OTHER ==
[~2023-09-16] VITALS: Ht 170.1 cm; Wt 73.5 kg
[2023-09-16 11:47] VITALS: BP 128/97
[2023-09-16] MEDS ORDERED: MULTIVITAMIN CONCENTRATE (IV) 10 ML,Thiamine 100 MG,FOLIC ACID 1 MG in SODIUM CHLORIDE ... IV ONE (12:05)
[2023-09-16 12:54] LABS: HEMATOCRIT 47.7 % (42.0-52.0); MANUAL DIFF REFLEX YES; MEAN CELL VOLUME 91.9 fl (80.0-94.0); MEAN CORPUSCULAR HGB 30.4 pg (27.0-31.0); MEAN CORPUSCULAR HGB CONC 33.1 g/dl (33.0-37.0); MEAN PLATELET VOLUME 10.5 fl (9.6-12.3); NUCLEATED RED BLOOD CELL 0.2 10*3/uL (0.0-0.0); NUCLEATED RED BLOOD CELL 0.6 % (0.0-0.0); PLATELET COUNT AUTOMATED 498 10*3/uL (130-400); RED BLOOD COUNT 5.19 10*6/uL (4.50-5.90); RED CELL DISTRI WIDTH 21.5 % (0-14.5)
[2023-09-16 13:15] LABS: BASOPHILS 4 % (0-1); OVALOCYTES FEW; PLATELET SUFFICIENCY HIGH (NORMAL); SCHISTOCYTES FEW; TOTAL CELLS COUNTED 100 #CELLS
[2023-09-16 13:16] LABS: ALKALINE PHOSPHATASE 71 U/L (46-116); BUN 36 mg/dl (9-23); CHLORIDE 103 mmol/L (98-107); LIPASE 78 U/L (12-53); POTASSIUM 3.9 mmol/L (3.4-5.1); SGPT/ALT 15 U/L (5-49); TOTAL PROTEIN 8.6 gm/dL (6.0-8.0)
[2023-09-16 13:23] LABS: ETHYL ALCOHOL < 3.0 mg/dl (<3)
[2023-09-16] MEDS ORDERED: Cyclobenzaprine Hydrochlorid 10 MG TAB PO ONE (13:30)
[2023-09-16] MEDS ORDERED: Dicyclomine Hydrochloride 20 MG/2 ML VIAL IM ONE (13:30)
[2023-09-16 14:27] LABS: BILIRUBIN 1+ (Negative); BLOOD Negative (Negative); CLARITY Cloudy (Clear); COLOR Dark Yellow (Yellow); GLUCOSE Negative (Negative); KETONE Trace (Negative); LEUKO ESTERASE Negative (Negative); NITRITE Negative (Negative); SPECIFIC GRAVITY 1.025 (1.001-1.030)
[2023-09-16 14:34] LABS: BACTERIA TRACE; HYALINE CAST 0-2; MUCOUS 1+; RBC 0-2 rbc/hpf (0-2)
[2023-09-16 14:35] LABS: URINE AMPHETAMINES Negative (1000ng/ml); URINE BARBITURATES Negative (200ng/ml); URINE BENZODIAZEPINES Negative (200ng/ml); URINE CANNABINOIDS (THC) Positive (50ng/ml); URINE COCAINE Positive (300ng/ml); URINE METHADONE Negative (300ng/ml); URINE OPIATES Positive (300ng/ml); URINE PHENCYCLIDINE Negative (25ng/ml)
[2023-09-16] MEDS ORDERED: MORPHINE Sulfate 2 MG/ML SYR IV PRN (15:50)
[2023-09-16] MEDS ORDERED: ACETAMINOPHEN 325 MG TAB PO PRN (15:50)
[2023-09-16] MEDS ORDERED: BISACODYL 10 MG SUPP R PRN (15:50)
[2023-09-16] MEDS ORDERED: BISACODYL 5 MG TAB PO PRN (15:50)
[2023-09-16] MEDS ORDERED: ACETAMINOPHEN 650 MG SUPP R PRN (15:50)
[2023-09-16] MEDS ORDERED: Magnesium Hydroxide 30 ML UDC PO PRN (15:50)
[2023-09-16] MEDS ORDERED: SODIUM CHLORIDE 0.9% 1,000 ML IV SCH (17:20)
[2023-09-16 20:36] VITALS: BP 123/68
[2023-09-16] MEDS ORDERED: Acetaminophen/Hydrocodone ES 7.5/325 tablet PO SCH (22:00)
[2023-09-16] MEDS ORDERED: busPIRone Hydrochloride 10 MG TAB PO SCH (22:00)
[2023-09-16] MEDS ORDERED: HEPARIN SODIUM 5,000 UNIT/ML VIAL SC SCH (22:00)
[2023-09-17] MEDS ORDERED: diphenhydrAMINE hydrochloride 25 MG CAP PO ONE ×2 (04:00→22:30)
[2023-09-17 06:31] LABS: HEMATOCRIT 38.9 % (42.0-52.0); MEAN CELL VOLUME 91.7 fl (80.0-94.0); MEAN CORPUSCULAR HGB 30.2 pg (27.0-31.0); MEAN CORPUSCULAR HGB CONC 32.9 g/dl (33.0-37.0); MEAN PLATELET VOLUME 10.6 fl (9.6-12.3); NUCLEATED RED BLOOD CELL 0.1 10*3/uL (0.0-0.0); NUCLEATED RED BLOOD CELL 0.6 % (0.0-0.0); PLATELET COUNT AUTOMATED 371 10*3/uL (130-400); RED BLOOD COUNT 4.24 10*6/uL (4.50-5.90); RED CELL DISTRI WIDTH 20.6 % (0-14.5); WHITE BLOOD COUNT 17.6 10*3/uL (4.8-10.8)
[2023-09-17 06:35] LABS: MANUAL DIFF REFLEX YES
[2023-09-17 07:17] LABS: BASOPHILS 2 % (0-1); TOTAL CELLS COUNTED 100 #CELLS
[2023-09-17 07:18] LABS: BURR CELLS FEW; OVALOCYTES FEW; PLATELET SUFFICIENCY NORMAL (NORMAL); POLYCHROMASIA SLIGHT; SCHISTOCYTES FEW
[2023-09-17 07:21] LABS: BLASTS 1 % (0-0)
[2023-09-17 07:29] VITALS: BP 138/78
[2023-09-17 07:43] LABS: FREE T4 1.22 ng/dl (0.89-1.76); POTASSIUM 3.5 mmol/L (3.4-5.1)
[2023-09-17 07:44] LABS: VITAMIN D, 25-HYDROXY 47.4 ng/mL (30-100)
[2023-09-17] MEDS ORDERED: SODIUM CHLORIDE 0.9% 1,000 ML IV ONE ×2 (07:45→17:50)
[2023-09-17] MEDS ORDERED: Enoxaparin Sodium 40 MG/0.4 ML SYR SC SCH (10:00)
[2023-09-17] MEDS ORDERED: HYDROXYUREA500 MG PO (13:19)
[2023-09-17 15:00] VITALS: BP 136/68
[2023-09-17] MEDS ORDERED: Acetaminophen/Hydrocodone ES 7.5/325 tablet PO SCH (16:00)
[2023-09-17 20:00] VITALS: BP 118/49
[2023-09-17] MEDS ORDERED: HYDROXYUREA 500 MG CAP PO SCH (22:00)
[2023-09-18 00:02] VITALS: BP 121/58
[2023-09-18 06:19] LABS: HEMATOCRIT 35.2 % (42.0-52.0); MEAN CELL VOLUME 92.6 fl (80.0-94.0); MEAN CORPUSCULAR HGB 31.1 pg (27.0-31.0); MEAN CORPUSCULAR HGB CONC 33.5 g/dl (33.0-37.0); NUCLEATED RED BLOOD CELL 0.1 10*3/uL (0.0-0.0); NUCLEATED RED BLOOD CELL 0.5 % (0.0-0.0); PLATELET COUNT AUTOMATED 350 10*3/uL (130-400); RED CELL DISTRI WIDTH 21.2 % (0-14.5); WHITE BLOOD COUNT 14.9 10*3/uL (4.8-10.8)
[2023-09-18 06:25] LABS: ALKALINE PHOSPHATASE 49 U/L (46-116); CHLORIDE 111 mmol/L (98-107); CPK 250 U/L (34-171); MANUAL DIFF REFLEX YES; POTASSIUM 3.7 mmol/L (3.4-5.1); SGPT/ALT 11 U/L (5-49); TOTAL PROTEIN 6.8 gm/dL (6.0-8.0)
[2023-09-18 06:30] LABS: BUN 26 mg/dl (9-23)
[2023-09-18 07:25] LABS: BASOPHILS 1 % (0-1); PLATELET SUFFICIENCY NORMAL (NORMAL); TOTAL CELLS COUNTED 100 #CELLS
[2023-09-18 07:26] LABS: BURR CELLS FEW; MICROCYTOSIS SLIGHT; POLYCHROMASIA SLIGHT
[2023-09-18 07:28] LABS: OVALOCYTES FEW; SCHISTOCYTES FEW
[2023-09-18 08:00] VITALS: BP 152/78
== END 2023-09-18 09:30 | disposition left against medical advice (07) | DRG 351 ==
LOC: ED 11:34 → EDHOLD 15:18 → 4E 09-17 10:56 → EDHOLD 09-17 10:56 → 4E 09-17 10:56
PROVIDERS: Internal Medicine; Student in an Organized Health Care Education/Training Program; ADMIT Internal Medicine; ATTEND Internal Medicine
DX: M62.82 Rhabdomyolysis (principal); N17.0 Acute kidney failure with tubular necrosis; E87.1 Hypo-osmolality and hyponatremia; F41.9 Anxiety disorder, unspecified; Z53.29 Procedure and treatment not carried out because of patient's decision for other reasons; N18.30 Chronic kidney disease, stage 3 unspecified; R73.9 Hyperglycemia, unspecified; D75.839 Thrombocytosis, unspecified; F14.10 Cocaine abuse, uncomplicated; F11.10 Opioid abuse, uncomplicated; F12.10 Cannabis abuse, uncomplicated; Z79.899 Other long term (current) drug therapy; Z79.01 Long term (current) use of anticoagulants; Z72.0 Tobacco use; Z79.2 Long term (current) use of antibiotics; Z88.8 Allergy status to other drugs, medicaments and biological substances; Z91.09 Other allergy status, other than to drugs and biological substances; Z90.49 Acquired absence of other specified parts of digestive tract; Z85.6 Personal history of leukemia; Z89.512 Acquired absence of left leg below knee; Z79.1 Long term (current) use of non-steroidal anti-inflammatories (NSAID)

== ENCOUNTER → 2023-10-29 | Outpatient (CLI) | payer OTHER ==
[~2023-10-29] MED LIST changes: +HYDROXYUREA500 MG PO
[2023-10-29 16:08] LABS: HEMATOCRIT 35.2 % (42.0-52.0); MEAN CELL VOLUME 91.9 fl (80.0-94.0); MEAN CORPUSCULAR HGB 30.5 pg (27.0-31.0); MEAN CORPUSCULAR HGB CONC 33.2 g/dl (33.0-37.0); MEAN PLATELET VOLUME 9.7 fl (9.6-12.3); NUCLEATED RED BLOOD CELL 0.5 % (0.0-0.0); PLATELET COUNT AUTOMATED 287 10*3/uL (130-400); RED BLOOD COUNT 3.83 10*6/uL (4.50-5.90); RED CELL DISTRI WIDTH 19.3 % (0-14.5); WHITE BLOOD COUNT 7.6 10*3/uL (4.8-10.8)
[2023-10-29 16:32] LABS: ALKALINE PHOSPHATASE 49 U/L (46-116); BUN 12 mg/dl (9-23); CHLORIDE 105 mmol/L (98-107); SGPT/ALT 12 U/L (5-49); TOTAL PROTEIN 6.7 gm/dL (6.0-8.0)
[2023-10-29 17:46] LABS: BASOPHILS 1 % (0-1); OVALOCYTES MODERATE; PLATELET SUFFICIENCY NORMAL (NORMAL); TOTAL CELLS COUNTED 100 #CELLS
[2023-10-29 17:47] LABS: SCHISTOCYTES FEW
== END | disposition home or self-care (01) ==
LOC: LAB 15:38
PROVIDERS: ATTEND Internal Medicine Medical Oncology
DX: D47.1 Chronic myeloproliferative disease (principal)

== ENCOUNTER → 2024-12-04 | Outpatient (CLI) | payer OTHER ==
[2024-12-04 13:25] LABS: MANUAL DIFF REFLEX YES; MEAN CELL VOLUME 96.6 fl (80.0-94.0); MEAN CORPUSCULAR HGB 31.5 pg (27.0-31.0); MEAN PLATELET VOLUME 9.8 fl (9.6-12.3); NUCLEATED RED BLOOD CELL 0.0 10*3/uL (0.0-0.0); NUCLEATED RED BLOOD CELL 0.4 % (0.0-0.0); PLATELET COUNT AUTOMATED 185 10*3/uL (130-400); RED CELL DISTRI WIDTH 20.9 % (0-14.5)
[2024-12-04 13:48] LABS: BASOPHILS 1 % (0-1)
[2024-12-04 13:50] LABS: PLATELET SUFFICIENCY NORMAL (NORMAL)
[2024-12-04 14:01] LABS: BUN 14 mg/dl (9-23); FREE T4 1.19 ng/dl (0.89-1.76); LDL CHOLESTEROL 26 mg/dL (9-159); SGPT/ALT 9 U/L (5-49)
== END | disposition home or self-care (01) ==
LOC: LAB 13:07
PROVIDERS: ATTEND Nurse Practitioner Family
DX: C18.9 Malignant neoplasm of colon, unspecified (principal); C80.1 Malignant (primary) neoplasm, unspecified; C85.91 Non-Hodgkin lymphoma, unspecified, lymph nodes of head, face, and neck; E78.49 Other hyperlipidemia; D47.1 Chronic myeloproliferative disease; K51.90 Ulcerative colitis, unspecified, without complications; G89.21 Chronic pain due to trauma

== ENCOUNTER 2025-02-02 13:15 | Emergency (ER) | payer OTHER ==
[~2025-02-02] VITALS: Ht 170.1 cm; Wt 81.6 kg
[2025-02-02 13:26] VITALS: BP 135/72
[2025-02-02] MEDS ORDERED: SODIUM CHLORIDE 0.9% 1,000 ML IV ONE (14:25)
[2025-02-02 14:46] LABS: MANUAL DIFF REFLEX YES; MEAN CELL VOLUME 94.1 fl (80.0-94.0); MEAN CORPUSCULAR HGB 32.4 pg (27.0-31.0); MEAN PLATELET VOLUME 10.9 fl (9.6-12.3); NUCLEATED RED BLOOD CELL 0.1 10*3/uL (0.0-0.0); NUCLEATED RED BLOOD CELL 0.6 % (0.0-0.0); PLATELET COUNT AUTOMATED 252 10*3/uL (130-400); RED CELL DISTRI WIDTH 20.4 % (0-14.5)
[2025-02-02 14:57] LABS: ACT PARTIAL THROMBO TIME 42.7 SECONDS (20.0-32.1)
[2025-02-02 15:20] LABS: PLATELET SUFFICIENCY NORMAL (NORMAL)
[2025-02-02 15:26] LABS: BUN 40.0 mg/dl (9-23); SGPT/ALT 12.0 U/L (5-49)
[2025-02-02 15:28] LABS: BASOPHILS 2 % (0-1)
[2025-02-02 15:29] LABS: BLASTS 5 % (0-0)
[2025-02-02] MEDS ORDERED: Metoclopramide Hydrochloride 10 MG/2 ML VIAL IV ONE (17:50)
[2025-02-02] MEDS ORDERED: diphenhydrAMINE hydrochloride 50 MG/ML VIAL IV ONE (17:50)
[2025-02-02 18:25] LABS: BILIRUBIN Negative (Negative); BLOOD Negative (Negative); CLARITY Clear (Clear); COLOR Yellow (Yellow); KETONE Trace (Negative); LEUKO ESTERASE Negative (Negative); NITRITE Negative (Negative); PH 5.5 (4.5-8.0); SPECIFIC GRAVITY 1.025 (1.001-1.030); UROBILINOGEN 0.2 E.U./dl (0.0-1.0)
[2025-02-02 18:39] LABS: BACTERIA 1+; MUCOUS 1+
== END 2025-02-02 19:10 | disposition left against medical advice (07) ==
LOC: ED 13:15
PROVIDERS: Nurse Practitioner Family
DX: R53.1 Weakness (principal); R11.0 Nausea; F32.A Depression, unspecified; F41.9 Anxiety disorder, unspecified; Z53.29 Procedure and treatment not carried out because of patient's decision for other reasons; Z90.49 Acquired absence of other specified parts of digestive tract; Z98.890 Other specified postprocedural states; Z88.1 Allergy status to other antibiotic agents; Z79.01 Long term (current) use of anticoagulants